=== PATIENT | female | born 1980 | race African-American/Black ===

== ENCOUNTER 2017-07-21 13:10 | Inpatient (IN) | payer MEDICARE, MEDICAID ==
[~2017-07-21] VITALS: Ht 165.1 cm; Wt 99.8 kg
[2017-07-21 13:20] VITALS: BP 152/79
[2017-07-21] MEDS ORDERED: PERCOCET 5-3251 EACH ORAL (13:26)
[2017-07-21] MEDS ORDERED: GABAPENTIN400 MG ORAL (13:26)
[2017-07-21] MEDS ORDERED: BUPROPION HCL100 M1 ORAL (13:26)
[2017-07-21] MEDS ORDERED: LANTUS SOL100 UNIT/1 SUBQ (13:26)
[2017-07-21] MEDS ORDERED: PLAVIX75 MG ORAL (13:26)
[2017-07-21] MEDS ORDERED: DERMOPLAST SPRA56 GM TP (13:26)
[2017-07-21] MEDS ORDERED: AMLODIPINE BESY10 MG ORAL (13:26)
[2017-07-21] MEDS ORDERED: ZYRTEC10 MG ORAL (13:26)
[2017-07-21] MEDS ORDERED: FLUTICASONE PRO16 G1 NASAL (13:26)
[2017-07-21] MEDS ORDERED: ASPIR 8181 MG ORAL (13:26)
[2017-07-21] MEDS ORDERED: ALBUTEROL SULF8.5 GM INH (13:26)
[2017-07-21] MEDS ORDERED: BENAZEPRIL HCL40 MG ORAL (13:26)
[2017-07-21] MEDS ORDERED: COLACE100 MG ORAL (13:26)
[2017-07-21] MEDS ORDERED: HUMALOG100 UNIT/4 SUBQ (13:27)
[2017-07-21 13:50] LABS: EOSINOPHILS % (AUTO) 1.7 % (0.0-3.0); LYMPHOCYTES % (AUTO) 18.2 % (20.0-45.0); MEAN CORPUSCULAR HEMOGLOBIN 29.1 PG (27.0-31.0); MEAN CORPUSCULAR HGB CONC 34.1 G/DL (32.0-36.0); MEAN CORPUSCULAR VOLUME 85 FL (80-99); MEAN PLATELET VOLUME 9.3 FL (6.5-10.1); MONOCYTES % (AUTO) 7.1 % (1.0-10.0); PLATELET COUNT 178 K/UL (150-450); RED BLOOD COUNT 3.81 M/UL (4.20-5.40); WHITE BLOOD COUNT 8.7 K/UL (4.8-10.8)
[2017-07-21 13:59] LABS: MAGNESIUM 1.8 mg/dL (1.7-2.5)
[2017-07-21 14:04] LABS: ALBUMIN/GLOBULIN RATIO 1.2 (1.0-2.7); CALCIUM 8.7 mg/dL (8.6-10.2); CREATININE 1.9 mg/dL (0.5-0.9); GLOMERULAR FILTRATION RATE 36.2 mL/min (>60); POTASSIUM 4.5 mEQ/L (3.4-4.9); TOTAL PROTEIN 6.6 g/dL (6.6-8.7); TROPONIN I < 0.30 ng/mL (<=0.30)
[2017-07-21 14:15] LABS: CKMB 4.7 ng/mL (< 3.8)
--- NOTE | 2017-07-21 14:34 | Emergency Room Report ---
History of Present Illness General Chief Complaint: Chest Pain Source: Patient Present Illness HPI 37-year-old female presents ED complaining of chest pain. Per EMS patient had chest pain starting today. Patient is been using cocaine for the last 3 days. Chest pain was pressure-like, 8/10, nonradiating. Was given aspirin and nitroglycerin per states the chest pain has resolved. Patient has history of hypertension diabetes. Accu-Chek is critically high. No other aggravating relieving factors. Denies any other associated symptom Allergies: Coded Allergies: CODEINE (Verified Allergy, Mild, 01/25/10) Patient History Past Medical History: DM, HTN Past Surgical History: none Pertinent Family History: none Social History: Reports: drug use, Denies: smoking, alcohol use Last Menstrual Period: 2011 (Depo) Now: No Immunizations: UTD Reviewed Nursing Documentation: PMH: Agreed, PSxH: Agreed Nursing Documentation-PMH Hx Diabetes: Yes History Of Psychiatric Problem: Yes - Cocaine abuse Review of Systems All Other Systems: negative except mentioned in HPI Physical Exam Vital Signs Date Time Temp Pulse Resp B/P (MAP) Pulse Ox O2 Delivery O2 Flow Rate FiO2 07/21/17 13:07 98.6 97 24 159/82 100 Room Air Sp02 EP Interpretation: reviewed, normal General Appearance: no apparent distress, alert, GCS 15, non-toxic Head: normocephalic, atraumatic Eyes: bilateral eye normal inspection, bilateral eye PERRL ENT: hearing grossly normal, normal pharynx, no angioedema, normal voice Neck: full range of motion, supple/symm/no masses Respiratory: chest non-tender, lungs clear, normal breath sounds, speaking full sentences Cardiovascular #1: regular rate, rhythm, no edema Cardiovascular #2: 2+ carotid (R), 2+ carotid (L), 2+ radial (R), 2+ radial (L) , 2+ dorsalis pedis (R), 2+ dorsalis pedis (L) Gastrointestinal: normal bowel sounds, non tender, soft, non-distended, no guarding, no rebound Rectal: deferred Genitourinary: normal inspection, no CVA tenderness Musculoskeletal: back normal, gait/station normal, normal range of motion, non- tender Neurologic: alert, oriented x3, responsive, motor strength/tone normal, sensory intact, speech normal Psychiatric: judgement/insight normal, memory normal, mood/affect normal, no suicidal/homicidal ideation Reflexes: 3+ bicep (R), 3+ bicep (L), 3+ tricep (R), 3+ tricep (L), 3+ knee (R) , 3+ knee (L) Skin: normal color, no rash, warm/dry, well hydrated Lymphatic: no adenopathy Procedures Critical Care Time Critical Care Time i. I feel this is a highly complex case requiring extensive working including EKG/Rhythm strip, Xray/CT/US, Blood/urine lab work, repeat exams while in ED, and administration of strong opiates/narcotics for pain control, admission to hospital or close patient follow up. Total time: 30 min bedside evaluation and treatment excludes procedures (EKG). Reason for critical care: Cocaine chest pain, hyperglycemia Possible complications: hypotension, hypertension, AZ, shock, arrhythmias, metabolic acidosis, end organ damage, respiratory failure. Interventions: Labs, IV fluids, EKG, chest x-ray. Insulin. Course: Patient brought in for chest pain. History of cocaine abuse. EKG shows no acute ischemic changes. Chest x-ray shows cardiac megaly, sternotomy wires. Troponins negative. Glucose 844, no evidence of DKA. Given IV fluids, given insulin. Patient given aspirin by EMS. Consultations: nursing staff, EMS, family Performed by: Dr Jeffers Tolerated well condition = serious j. because of unstable vital signs this patient had a condition that could potentially threaten life or limb. I feel this is a critical patient who required my full attention while patient was considered critical. Total Critical Care Time excluding procedures was greater than 35 minutes Medical Decision Making Diagnostic Impression: Primary Impression: ACS (acute coronary syndrome) Additional Impressions: Cocaine abuse Hyperglycemia ARF (acute renal failure) Qualified Codes: N17.9 - Acute kidney failure, unspecified ER Course Hospital Course 37-year-old female presents to ED with chest pain after using cocaine. Accu- Chek critically high Differential diagnoses include: AZ/unstable angina, hyperkalemia, msucle strain , DKA Clinical course Patient placed on stretcher. on patient monitor. After initial history and physical I ordered labs, EKG, chest x-ray, IVFs labs reviewed- no leukocytosis, hb/hct stable, BUN/Cr elevated, Na 128, trop negative, glucose > 800, no evidence of DKA. Utox + cocaine EKG - NSR, no acute changes interpreted by me Chest x-ray- no acute changes, sternotomy wires noted Given IV fluids. Given insulin. Patient is chest pain-free here Case discussed with Dr. Ochoa and he agreed to accept the patient to his service for further care and support I. I feel this is a highly complex case requiring extensive working including EKG/Rhythm strip, Xray/CT/US, Blood/urine lab work, repeat exams while in ED, and administration of strong opiates/narcotics for pain control, admission to hospital or close patient follow up. Diagnosis - ACS, cocaine abuse, hyperglycemia, ARF admitted to telemetry in serious condition Labs Test 07/21/17 13:28 White Blood Count 8.7 K/UL (4.8-10.8) Red Blood Count 3.81 M/UL (4.20-5.40) Hemoglobin 11.1 G/DL (12.0-16.0) Hematocrit 32.5 % (37.0-47.0) Mean Corpuscular Volume 85 FL (80-99) Mean Corpuscular Hemoglobin 29.1 PG (27.0-31.0) Mean Corpuscular Hemoglobin Concent 34.1 G/DL (32.0-36.0) Red Cell Distribution Width 12.0 % (11.6-14.8) Platelet Count 178 K/UL (150-450) Mean Platelet Volume 9.3 FL (6.5-10.1) Neutrophils (%) (Auto) 72.0 % (45.0-75.0) Lymphocytes (%) (Auto) 18.2 % (20.0-45.0) Monocytes (%) (Auto) 7.1 % (1.0-10.0) Eosinophils (%) (Auto) 1.7 % (0.0-3.0) Basophils (%) (Auto) 1.0 % (0.0-2.0) Urine HCG, Qualitative Negative Sodium Level 128 mEQ/L (135-145) Potassium Level 4.5 mEQ/L (3.4-4.9) Chloride Level 93 mEQ/L (98-107) Carbon Dioxide Level 17 mEQ/L (20-30) Anion Gap 18 (5-15) Blood Urea Nitrogen 25 mg/dL (7-23) Creatinine 1.9 mg/dL (0.5-0.9) Estimat Glomerular Filtration Rate 36.2 mL/min (>60) Glucose Level 844 mg/dL (74-106) Calcium Level 8.7 mg/dL (8.6-10.2) Magnesium Level 1.8 mg/dL (1.7-2.5) Total Bilirubin 0.3 mg/dL (0.0-1.2) Aspartate Amino Transf (AST/SGOT) 13 U/L (5-40) Alanine Aminotransferase (ALT/SGPT) 17 U/L (3-33) Alkaline Phosphatase 130 U/L (35-104) Total Creatine Kinase 373 U/L (26-140) Creatine Kinase MB 4.7 ng/mL (< 3.8) Creatine Kinase MB Relative Index 1.2 Troponin I < 0.30 ng/mL (<=0.30) Pro-B-Type Natriuretic Peptide 146 pg/mL (0-125) Total Protein 6.6 g/dL (6.6-8.7) Albumin 3.7 g/dL (3.5-5.2) Globulin 2.9 g/dL Albumin/Globulin Ratio 1.2 (1.0-2.7) Urine Opiates Screen Negative (NEGATIVE) Urine Barbiturates Screen Negative (NEGATIVE) Phencyclidine (PCP) Screen Negative (NEGATIVE) Urine Amphetamines Screen Negative (NEGATIVE) Urine Benzodiazepines Screen Negative (NEGATIVE) Urine Cocaine Screen Positive (NEGATIVE) Urine Marijuana (THC) Screen Negative (NEGATIVE) Acetone Level Negative (NEGATIVE) EKG Diagnostic Results Rate: normal Rhythm: NSR ST Segments: no acute changes ASA given to the pt in ED: No - given by ems Rhythm Strip Diag. Results EP Interpretation: yes Rhythm: NSR, no PVC's, no ectopy Chest X-Ray Diagnostic Results Chest X-Ray Diagnostic Results : Chest X-Ray Ordered: Yes # of Views/Limited/Complete: 1 View Indication: Chest Pain EP Interpretation: Yes Interpretation: no consolidation, no effusion, no pneumothorax, no acute cardiopulmonary disease, other - sternotomy wires noted Impression: No acute disease Interpreting ER Provider: Electronically signed by Imtiaz Jeffers MD Last Vital Signs Date Time Temp Pulse Resp B/P (MAP) Pulse Ox O2 Delivery O2 Flow Rate FiO2 07/21/17 13:20 93 23 Room Air 07/21/17 13:20 98.0 152/79 100 Status: improved Disposition: ADMITTED INPATIENT Condition: Serious Referrals: NOT CHOSEN SHAHZAD/,REFERRING (PCP) IMTIAZ JEFFERS M.D. Jul 21, 2017 14:34
[2017-07-21 15:00] VITALS: BP 162/85
[2017-07-21 15:56] LABS: O2 CONTENT VENOUS 41.6
[2017-07-21 17:00] VITALS: BP 151/85
--- NOTE | 2017-07-21 18:05 | History & Physical ---
History and Physical History & Physicial 37-year-old female presents with vague chest pain and noted to have poorly controlled diabetes. Per the patient, chest pain started today and was severe but not radiating. Patient is been using cocaine for the last 3 days. she was given aspirin and nitroglycerin with resolution of chest pain. Patient does have a history of hypertension diabetes. She was treated in the ER and now being admitted [facility]. she has no significant CAD but does have hypertension. Allergies/Medications: noted and reviewed CODEINE (Verified Allergy, Mild, 01/25/10) Past Medical History: DM, HTN Past Surgical History: none Pertinent Family History: none Social History: reports cocaine use, Denies: smoking, alcohol use Last Menstrual Period: 2011 (Depo) Reviewed of systems: otherwise negative Physical exam 157/79 98.4 75 14 98% WDWN NAD EOMI clear breath sounds bilaterally without rhonchi or wheeze [id number] without MRG NABS nontender no HSM no CCE nonfocal Labs Test 07/21/17 13:28 07/21/17 15:50 White Blood Count 8.7 K/UL (4.8-10.8) Red Blood Count 3.81 M/UL (4.20-5.40) Hemoglobin 11.1 G/DL (12.0-16.0) Hematocrit 32.5 % (37.0-47.0) Mean Corpuscular Volume 85 FL (80-99) Mean Corpuscular Hemoglobin 29.1 PG (27.0-31.0) Mean Corpuscular Hemoglobin Concent 34.1 G/DL (32.0-36.0) Red Cell Distribution Width 12.0 % (11.6-14.8) Platelet Count 178 K/UL (150-450) Mean Platelet Volume 9.3 FL (6.5-10.1) Neutrophils (%) (Auto) 72.0 % (45.0-75.0) Lymphocytes (%) (Auto) 18.2 % (20.0-45.0) Monocytes (%) (Auto) 7.1 % (1.0-10.0) Eosinophils (%) (Auto) 1.7 % (0.0-3.0) Basophils (%) (Auto) 1.0 % (0.0-2.0) Urine HCG, Qualitative Negative Sodium Level 128 mEQ/L (135-145) Potassium Level 4.5 mEQ/L (3.4-4.9) Chloride Level 93 mEQ/L (98-107) Carbon Dioxide Level 17 mEQ/L (20-30) Anion Gap 18 (5-15) Blood Urea Nitrogen 25 mg/dL (7-23) Creatinine 1.9 mg/dL (0.5-0.9) Estimat Glomerular Filtration Rate 36.2 mL/min (>60) Glucose Level 844 mg/dL (74-106) Calcium Level 8.7 mg/dL (8.6-10.2) Magnesium Level 1.8 mg/dL (1.7-2.5) Total Bilirubin 0.3 mg/dL (0.0-1.2) Aspartate Amino Transf (AST/SGOT) 13 U/L (5-40) Alanine Aminotransferase (ALT/SGPT) 17 U/L (3-33) Alkaline Phosphatase 130 U/L (35-104) Total Creatine Kinase 373 U/L (26-140) Creatine Kinase MB 4.7 ng/mL (< 3.8) Creatine Kinase MB Relative Index 1.2 Troponin I < 0.30 ng/mL (<=0.30) Pro-B-Type Natriuretic Peptide 146 pg/mL (0-125) Total Protein 6.6 g/dL (6.6-8.7) Albumin 3.7 g/dL (3.5-5.2) Globulin 2.9 g/dL Albumin/Globulin Ratio 1.2 (1.0-2.7) Urine Opiates Screen Negative (NEGATIVE) Urine Barbiturates Screen Negative (NEGATIVE) Phencyclidine (PCP) Screen Negative (NEGATIVE) Urine Amphetamines Screen Negative (NEGATIVE) Urine Benzodiazepines Screen Negative (NEGATIVE) Urine Cocaine Screen Positive (NEGATIVE) Urine Marijuana (THC) Screen Negative (NEGATIVE) Acetone Level Negative (NEGATIVE) Venous Bld O2 Saturation (Measured) 41.6 Methemoglobin 0.4 IMPRESSION diabetes out of control no clear DKA by acetone level metabolic acidosis acute renal failure hyponatremia hypertension chest pain possible ACS cocaine use PLAN serial troponin ECG iv hydration SSI with high scale monitor lytes and K aspirin daily beta blockers impression, plan, and exam edited and reviewed in detail care discussed with BHAVIN HENRIQUEZ Jul 21, 2017 18:05
[2017-07-21] MEDS ORDERED: LORazepam 1mg tab ORAL PRN (18:15)
[2017-07-21] MEDS ORDERED: oxyCODONE HCL/Acetaminophen 5/325mg ORAL PRN (18:15)
[2017-07-21] MEDS ORDERED: DuoNeb 0.5-3(2.5)mg/3ml neb ONE (19:53)
[2017-07-21 20:00] VITALS: BP 151/80
[2017-07-21] MEDS: NovoLOG Insulin Flexpen SUBQ SCH (20:21)
[2017-07-21] MEDS: Albuterol ud Inhalation HHN SCH ×2 (21:00→23:15)
[2017-07-21] MEDS ORDERED: Zolpidem 5mg tab ORAL PRN (21:00)
[2017-07-21] MEDS: Flonase Nasal Inhaler 16gm NASAL SCH (21:17)
[2017-07-21] MEDS: BuPROPion XL 150mg tab ORAL SCH (21:17)
[2017-07-21 21:29] LABS: HEMOGLOBIN A1C 9.5 % (< 6.0)
[2017-07-21 21:38] LABS: CALCIUM 8.5 mg/dL (8.6-10.2); CREATININE 1.6 mg/dL (0.5-0.9); GLOMERULAR FILTRATION RATE 44.2 mL/min (>60); POTASSIUM 4.2 mEQ/L (3.4-4.9)
[2017-07-22] MEDS ORDERED: Zolpidem 5mg tab ORAL PRN (02:15)
[2017-07-22] MEDS: Albuterol ud Inhalation HHN SCH ×6 (04:51→23:34)
[2017-07-22] MEDS: NovoLOG Insulin Flexpen SUBQ SCH ×4 (05:37→21:25)
[2017-07-22] MEDS ORDERED: Nitroglycerin 2% oint pkt TOPIC SCH (06:00)
[2017-07-22 07:08] LABS: BASOPHILS % (AUTO) 1.1 % (0.0-2.0); EOSINOPHILS % (AUTO) 3.4 % (0.0-3.0); LYMPHOCYTES % (AUTO) 30.3 % (20.0-45.0); MEAN CORPUSCULAR HEMOGLOBIN 28.7 PG (27.0-31.0); MEAN CORPUSCULAR HGB CONC 33.8 G/DL (32.0-36.0); MEAN CORPUSCULAR VOLUME 85 FL (80-99); MEAN PLATELET VOLUME 10.6 FL (6.5-10.1); MONOCYTES % (AUTO) 6.7 % (1.0-10.0); NEUTROPHILS % (AUTO) 58.6 % (45.0-75.0); PLATELET COUNT 172 K/UL (150-450); RED BLOOD COUNT 3.94 M/UL (4.20-5.40); WHITE BLOOD COUNT 6.8 K/UL (4.8-10.8)
[2017-07-22] MEDS: Docusate 100mg cap ORAL SCH ×2 (08:19→17:32)
[2017-07-22] MEDS: Flonase Nasal Inhaler 16gm NASAL SCH ×2 (08:19→17:32)
[2017-07-22] MEDS: Aspirin EC 81mg tab ORAL SCH (08:20)
[2017-07-22] MEDS: BuPROPion XL 150mg tab ORAL SCH ×2 (08:21→21:22)
[2017-07-22] MEDS ORDERED: Atenolol 25mg tab ORAL SCH (09:00)
[2017-07-22] MEDS ORDERED: Heparin 5000 units/ml inj SUBQ SCH (09:00)
[2017-07-22] MEDS ORDERED: Aspirin Baby 81mg ORAL SCH (09:00)
--- NOTE | 2017-07-22 09:23 | Diagnostic Imaging Report ---
Indication: Chest pain Technique: One view of the chest Comparison: 04/10/2012 Findings: The lungs and pleural spaces are clear. The heart is mildly enlarged. Interim median sternotomy. No other significant change Impression: No acute process Mild cardiomegaly
[2017-07-22 12:00] VITALS: BP 153/87
--- NOTE | 2017-07-22 12:06 | General Progress Note ---
Assessment/Plan Assessment/Plan IMPRESSION diabetes out of control no clear DKA by acetone level metabolic acidosis acute renal failure hyponatremia hypertension chest pain possible ACS cocaine use PLAN serial troponin ECG noted iv hydration SSI with high scale monitor lytes and K aspirin daily dc in am if stable impression, plan, and exam edited and reviewed in detail care discussed with RN Subjective Allergies: Coded Allergies: CODEINE (Verified Allergy, Mild, 01/25/10) Subjective overall better no cp Objective Last 24 Hour Vital Signs Date Time Temp Pulse Resp B/P (MAP) Pulse Ox O2 Delivery O2 Flow Rate FiO2 07/22/17 11:58 92 17 98 Room Air 07/22/17 08:20 89 149/86 07/22/17 08:00 83 07/22/17 07:29 88 18 97 Room Air 07/22/17 07:22 88 16 97 Room Air 07/22/17 04:52 80 20 Room Air 21 07/22/17 04:00 89 07/22/17 03:40 88 20 100 Room Air 07/22/17 03:30 80 20 98 Room Air 07/22/17 01:05 97.3 07/22/17 00:00 91 07/21/17 23:18 86 20 100 Room Air 21 07/21/17 23:17 82 20 100 Room Air 21 07/21/17 20:00 91 07/21/17 20:00 97.3 95 22 151/80 94 Room Air 07/21/17 17:47 95 22 157/79 100 Room Air 07/21/17 17:00 93 24 151/85 98 Room Air 07/21/17 15:00 98.3 97 30 162/85 98 Room Air 07/21/17 13:20 93 23 Room Air 07/21/17 13:20 98.0 94 25 152/79 100 Room Air 07/21/17 13:07 98.6 97 24 159/82 100 Room Air Intake and Output 07/22/17 07/23/17 19:00 07:00 Intake Total 150 ml Balance 150 ml Intake IV Total 150 ml Laboratory Tests 07/21/17 13:28: White Blood Count 8.7, Red Blood Count 3.81L, Hemoglobin 11.1L, Hematocrit 32.5L , Mean Corpuscular Volume 85, Mean Corpuscular Hemoglobin 29.1, Mean Corpuscular Hemoglobin Concent 34.1, Red Cell Distribution Width 12.0, Platelet Count 178, Mean Platelet Volume 9.3, Neutrophils (%) (Auto) 72.0, Lymphocytes (% ) (Auto) 18.2L, Monocytes (%) (Auto) 7.1, Eosinophils (%) (Auto) 1.7, Basophils (%) (Auto) 1.0, Urine HCG, Qualitative Negative, Sodium Level 128L, Potassium Level 4.5, Chloride Level 93L, Carbon Dioxide Level 17L, Anion Gap 18H, Blood Urea Nitrogen 25H, Creatinine 1.9H, Estimat Glomerular Filtration Rate 36.2, Glucose Level 844*H, Calcium Level 8.7, Magnesium Level 1.8, Total Bilirubin 0.3 , Aspartate Amino Transf (AST/SGOT) 13, Alanine Aminotransferase (ALT/SGPT) 17, Alkaline Phosphatase 130H, Total Creatine Kinase 373H, Creatine Kinase MB 4.7H, Creatine Kinase MB Relative Index 1.2, Troponin I < 0.30, Pro-B-Type Natriuretic Peptide 146H, Total Protein 6.6, Albumin 3.7, Globulin 2.9, Albumin/ Globulin Ratio 1.2, Urine Opiates Screen Negative, Urine Barbiturates Screen Negative, Phencyclidine (PCP) Screen Negative, Urine Amphetamines Screen Negative, Urine Benzodiazepines Screen Negative, Urine Cocaine Screen PositiveH , Urine Marijuana (THC) Screen Negative, Acetone Level Negative 07/21/17 15:50: Venous Blood pH [Pending], Venous Blood Partial Pressure CO2 [Pending], Venous Blood Partial Pressure O2 [Pending], Venous Blood HCO3 [Pending], Venous Blood Total Carbon Dioxide [Pending], Venous Bld O2 Saturation (Measured) 41.6, Venous Blood Oxygen Saturation [Pending], Venous Blood Base Excess [Pending], Methemoglobin 0.4, Sodium (Blood Gas) [Pending] 07/21/17 20:12: Sodium Level 138#, Potassium Level 4.2, Chloride Level 103, Carbon Dioxide Level 19L, Anion Gap 16H, Blood Urea Nitrogen 25H, Creatinine 1.6H, Estimat Glomerular Filtration Rate 44.2, Glucose Level 419#H, Calcium Level 8.5L, Hemoglobin A1c 9.5H 07/22/17 05:20: White Blood Count 6.8, Red Blood Count 3.94L, Hemoglobin 11.3L, Hematocrit 33.5L , Mean Corpuscular Volume 85, Mean Corpuscular Hemoglobin 28.7, Mean Corpuscular Hemoglobin Concent 33.8, Red Cell Distribution Width 12.0, Platelet Count 172, Mean Platelet Volume 10.6H, Neutrophils (%) (Auto) 58.6, Lymphocytes (%) (Auto) 30.3, Monocytes (%) (Auto) 6.7, Eosinophils (%) (Auto) 3.4H, Basophils (%) (Auto) 1.1 Height (Feet): 5 Height (Inches): 5.00 Weight (Pounds): 220 Objective WDWN NAD clear breath sounds bilaterally without rhonchi or wheeze [id number] without MRG NABS nontender no HSM no CCE nonfocal BHAVIN PERRY Jul 22, 2017 12:06
[2017-07-22 16:00] VITALS: BP 134/74
[2017-07-22 20:00] VITALS: BP 128/83
[2017-07-22] MEDS ORDERED: Levemir Flexpen SUBQ SCH (21:00)
[2017-07-23 00:22] VITALS: BP 154/77
[2017-07-23] MEDS: Albuterol ud Inhalation HHN SCH ×3 (03:21→11:00)
[2017-07-23 03:55] VITALS: BP 143/76
[2017-07-23] MEDS: NovoLOG Insulin Flexpen SUBQ SCH ×2 (05:58→11:36)
[2017-07-23 07:59] VITALS: BP 136/83
[2017-07-23] MEDS: Docusate 100mg cap ORAL SCH (08:37)
[2017-07-23] MEDS: Flonase Nasal Inhaler 16gm NASAL SCH (08:37)
[2017-07-23] MEDS: Aspirin EC 81mg tab ORAL SCH (08:38)
[2017-07-23] MEDS: BuPROPion XL 150mg tab ORAL SCH (08:38)
--- NOTE | 2017-07-23 09:59 | General Progress Note ---
Assessment/Plan Assessment/Plan IMPRESSION diabetes out of control no clear DKA by acetone level metabolic acidosis acute renal failure hyponatremia hypertension chest pain possible ACS cocaine use PLAN serial troponin negative ECG noted iv hydration- likely dc SSI with high scale monitor lytes and K aspirin daily dc to snf if able patient will need placement impression, plan, and exam edited and reviewed in detail care discussed with RN Subjective Allergies: Coded Allergies: CODEINE (Verified Allergy, Mild, 01/25/10) Subjective overall better no cp at present reports she has no home at present and unable to fill meds Objective Last 24 Hour Vital Signs Date Time Temp Pulse Resp B/P (MAP) Pulse Ox O2 Delivery O2 Flow Rate FiO2 07/23/17 08:38 136/83 07/23/17 08:37 86 136/83 07/23/17 08:00 91 07/23/17 07:59 97.7 86 18 136/83 100 Room Air 07/23/17 07:31 95 20 100 Room Air 07/23/17 07:23 92 20 100 Room Air 07/23/17 04:31 99 07/23/17 03:55 97.7 85 22 143/76 99 Room Air 07/23/17 03:30 89 20 98 Room Air 07/23/17 03:19 92 22 95 Room Air 07/23/17 00:22 98.1 92 21 154/77 100 Room Air 07/23/17 00:00 92 07/22/17 23:46 90 14 96 Room Air 07/22/17 23:32 90 18 93 Room Air 07/22/17 20:02 97 07/22/17 20:00 98.1 91 21 128/83 98 Room Air 07/22/17 19:53 92 16 97 Room Air 07/22/17 19:42 91 16 94 Room Air 07/22/17 16:00 97.8 87 20 134/74 99 Room Air 07/22/17 16:00 90 07/22/17 15:30 Room Air 07/22/17 15:30 Room Air 07/22/17 12:12 149/86 07/22/17 12:11 86 19 98 Room Air 07/22/17 12:00 86 07/22/17 12:00 97.7 91 20 153/87 97 Room Air 07/22/17 11:58 92 17 98 Room Air Intake and Output 07/23/17 07/24/17 19:00 07:00 Intake Total 520 ml Balance 520 ml Intake Oral 240 ml IV Total 280 ml Height (Feet): 5 Height (Inches): 5.00 Weight (Pounds): 220 Objective WDWN NAD clear breath sounds bilaterally without rhonchi or wheeze [id number] without MRG NABS nontender no HSM no CCE nonfocal BHAVIN PERRY Jul 23, 2017 09:59
[2017-07-23 11:33] VITALS: BP 153/89
[2017-07-23] MEDS ORDERED: LORazepam 1mg tab ORAL PRN (12:30)
[2017-07-23] MEDS ORDERED: oxyCODONE HCL/Acetaminophen 5/325mg ORAL PRN (12:30)
[2017-07-23] MEDS ORDERED: Albuterol ud Inhalation HHN SCH (15:00)
[2017-07-23] MEDS ORDERED: NovoLOG Insulin Flexpen SUBQ SCH (16:30)
[2017-07-23] MEDS ORDERED: Docusate 100mg cap ORAL SCH (18:00)
[2017-07-23] MEDS ORDERED: Flonase Nasal Inhaler 16gm NASAL SCH (18:00)
[2017-07-23] MEDS ORDERED: Zolpidem 5mg tab ORAL PRN (21:00)
[2017-07-23] MEDS ORDERED: BuPROPion SR 150mg tab ORAL SCH (21:00)
[2017-07-23] MEDS ORDERED: Levemir Flexpen SUBQ SCH (21:00)
--- NOTE | 2017-07-24 05:45 | Progress Note ---
July 23, 2017 CARDIOLOGY PROGRESS NOTE SUBJECTIVE: The patient is not cooperative with blood draws and wants to leave the hospital. PHYSICAL EXAMINATION: VITAL SIGNS: Blood pressure 143/76, pulse 85, and respiratory rate 22. No fevers. LUNGS: Clear. CARDIAC: Regular. Normal S1, S2. ABDOMEN: Soft. No edema. IMPRESSION: 1. Cocaine intoxication. 2. Coronary vasospasm secondary to cocaine. 3. Acute coronary insufficiency. 4. Diabetes mellitus uncontrolled with possible ketoacidosis. 5. Hypertensive heart disease. PLAN: 1. Encouraged laboratory draw. 2. Hydration by IV route. 3. Insulin coverage. 4. Anti-platelet therapy. 5. As needed nitrates. 6. No stress test planned at this time. Mark Yarbrough M.D. DR: NINO JOB#: [id number] CC: LAVERN
--- NOTE | 2017-07-24 07:16 | Consultation ---
DATE OF CONSULTATION: 07/22/2017 CARDIOLOGY CONSULTATION CONSULTING PHYSICIAN: Mark Yarbrough M.D. REQUESTING PHYSICIAN: Jung Ochoa M.D. REASON FOR CONSULTATION: Chest pain. HISTORY OF PRESENT ILLNESS: This is a 37-year-old female. She presented to the hospital yesterday with complaints of chest pain of one day duration and was also noted to have uncontrolled diabetes with possible ketosis. The patient had admitted to cocaine use and a positive tox screen was noted. The patient has no other coronary risk factors. Her troponin levels have been negative. PAST MEDICAL HISTORY: Diabetes mellitus and hypertension. MEDICATIONS: Reviewed and reconciled. SOCIAL HISTORY: Positive cocaine use. Denies smoking or alcohol use. FAMILY HISTORY: Noncontributory. REVIEW OF SYSTEMS: A 10-point review of systems performed. All systems negative other than noted above. PHYSICAL EXAMINATION: VITAL SIGNS: Blood pressure 128/83, pulse 91, respirations 21, and afebrile. NECK: Supple. Jugular venous pressure normal. No bruits. LUNGS: Clear. CARDIAC: Regular rhythm and rate. Normal S1 and S2 with no murmur, rub, or gallop. ABDOMEN: Soft. EXTREMITIES: Without edema. LABORATORY DATA: Troponin negative on admission. Laboratories reviewed. IMPRESSION: 1. Cocaine intoxication and abuse. 2. Probable coronary vasospasm secondary to cocaine. 3. Acute on chronic kidney injury. 4. Diabetes mellitus, uncontrolled with possible ketoacidosis. PLAN: 1. Hydration. 2. Insulin coverage. 3. Nitrates. 4. Anti-platelet therapy. 5. I would not recommend stress test at this time. Mark Yarbrough M.D. DR: NOMAN JOB#: [id number] CC:
[2017-07-24] MEDS ORDERED: Aspirin EC 81mg tab ORAL SCH (09:00)
--- NOTE | 2017-07-24 16:49 | Cardiology Report ---
APPROVED REPORT EKG Measurement Heart [id number] Normal sinus rhythm Possible Left atrial enlargement Possible Inferior infarct, age undetermined Anterior infarct, age undetermined Prolonged QT Abnormal ECG
--- NOTE | 2017-07-25 13:56 | Discharge Summary ---
Discharge Summary Hospital Course Date of Admission Jul 21, 2017 at 14:05 Date of Discharge Jul 23, 2017 at 13:15 Admitting Diagnosis Acute Coronary Syndrome, Substance Abuse HPI Stefanie Hogue is a 37 year old female who was admitted on Jul 21, 2017 at 14: 05 for Acute Coronary Syndrome,Substance Abuse Hospital Course [id number] Discharge Discharge Disposition Patient left AMA Discharge Diagnoses: Bianka Ortiz NP Jul 25, 2017 13:56
--- NOTE | 2017-07-26 05:45 | Discharge Summary 2 SIG ---
DATE OF ADMISSION: 07/21/2017 DATE OF DISCHARGE: 07/23/2017 CONDITIONING MACHINE OPERATOR: Mark Yarbrough M.D. BRIEF HOSPITAL COURSE: The patient is a 37-year-old female, who came in complaining of vague chest pain and was noted to have poorly controlled diabetes. Chest pain started the day on admission and was described to be severe, but nonradiating. She admits to using cocaine for the past three days. She was given aspirin and nitroglycerin. Chest pain resolved. She has history of hypertension and diabetes and glucose was 844. Creatinine was elevated to 1.9. Sodium was 128. There was no evidence of DKA. Urine toxicology was positive for cocaine. Acetone level was negative. Anion gap was 18. She was admitted to telemetry for diabetes mellitus, out of control, metabolic acidosis, acute renal failure, hyponatremia, and hypertension with chest pain. Cardiac troponins were monitored. She was given IV hydration. Blood sugar was controlled with sliding scale of insulin. She underwent cardiac evaluation and was given antiplatelet therapy consisting of aspirin and Plavix. She was given benazepril and Norvasc. No need for stress test. She was eventually discharged home. FINAL DIAGNOSES: 1. Diabetes mellitus, out of control. 2. Metabolic acidosis. 3. Acute renal failure. 4. Hyponatremia. 5. Hypertension. 6. Probable coronary vasospasm, secondary to cocaine. 7. Diabetes mellitus with possible ketoacidosis. 8. Cocaine intoxication and abuse. DISPOSITION: The patient left against medical advice. Jung Ochoa M.D. I have been assigned to dictate discharge summary on this account and I was not involved in the patient's management. Bianka Ortiz N.P. DR: Ignacia JOB#: [id number] CC:
== END 2017-07-23 13:15 | disposition left against medical advice (07) | DRG 638 ==
LOC: EDBD 13:10 → EMR 14:01 → 2E 14:05 → EDBEDREQ 14:14 → 2E 22:23
DX: E13.10 Other specified diabetes mellitus with ketoacidosis without coma (principal); I20.1 Angina pectoris with documented spasm; N17.9 Acute kidney failure, unspecified; I13.10 Hypertensive heart and chronic kidney disease without heart failure, with stage 1 through stage 4 chronic kidney disease, or unspecified chronic kidney disease; E87.1 Hypo-osmolality and hyponatremia; Z79.4 Long term (current) use of insulin; F14.129 Cocaine abuse with intoxication, unspecified; E11.22 Type 2 diabetes mellitus with diabetic chronic kidney disease; N18.9 Chronic kidney disease, unspecified; Z88.6 Allergy status to analgesic agent
CPT/HCPCS: 36415; 71010; 80048; 80053; 80300; 81025; 82009; 82550; 82553; 82962; 83036; 83735; 83880; 84484; 85025; 87081; 93005; 93306; 94640; 94664; J1815; J7620; S5561

== ENCOUNTER 2017-07-26 23:34 | Emergency (ER) | payer MEDICARE, MEDICAID ==
[~2017-07-26] VITALS: Ht 162.6 cm; Wt 99.8 kg
[~2017-07-26 23:34] MED LIST: ALBUTEROL SULF8.5 GM INH; AMLODIPINE BESY10 MG ORAL; ASPIR 8181 MG ORAL; BENAZEPRIL HCL40 MG ORAL; BUPROPION HCL100 M1 ORAL; COLACE100 MG ORAL; DERMOPLAST SPRA56 GM TP; FLUTICASONE PRO16 G1 NASAL; GABAPENTIN400 MG ORAL; HUMALOG100 UNIT/4 SUBQ; LANTUS SOL100 UNIT/1 SUBQ; PERCOCET 5-3251 EACH ORAL; PLAVIX75 MG ORAL; ZYRTEC10 MG ORAL
[2017-07-26 23:55] VITALS: BP 166/95
--- NOTE | 2017-07-27 00:08 | Emergency Room Report ---
History of Present Illness General Chief Complaint: Headache Source: Patient Present Illness HPI She'll female with a history of diabetes and high blood pressure. She presents with chief complaint of headache. She said that she is out of her pain medication. Also hasn't taken her blood pressure medication or her diabetes medication since she left here 2 days ago. She has a history of cocaine abuse. She told me she hasn't used anything since she was admitted here. Also said she hasn't taken her medication because she is homeless and does have any money. She said that she was discharged. There was talk about sent her to snf for her medication. When I checked the notes from director of social services and nursing staff, patient signed out AMA. She was very restrictive away she wants to go. She did not want director of social services to call her family. She does notice that her money on [facility]. She only wanted go to a certain 1 that she can stay all day. She did not want to use her money on her medications been no co-pays only $1-$3 prescription. Allergies: Coded Allergies: CODEINE (Verified Allergy, Mild, 01/25/10) Patient History Past Medical History: see triage record, old chart reviewed, DM, HTN, CAD Past Surgical History: other Pertinent Family History: none Social History: Reports: smoking, drug use Last Menstrual Period: January 2012 Now: No Immunizations: other Reviewed Nursing Documentation: PMH: Agreed, PSxH: Agreed Nursing Documentation-PMH Hx Hypertension: Yes Hx Diabetes: Yes Review of Systems Eye: Denies: eye pain, blurred vision ENT: Denies: ear pain, nose congestion, throat swelling Respiratory: Denies: cough, shortness of breath Cardiovascular: Denies: chest pain, palpitations Gastrointestinal: Denies: abdominal pain, diarrhea, nausea, vomiting Musculoskeletal: Denies: back pain, joint pain Skin: Denies: rash Neurological: Reports: headache, Denies: numbness Endocrine: Denies: increased thirst, increased urine Hematologic/Lymphatic: Denies: easy bruising All Other Systems: negative except mentioned in HPI Physical Exam Vital Signs Date Time Temp Pulse Resp B/P (MAP) Pulse Ox O2 Delivery O2 Flow Rate FiO2 07/26/17 23:50 98.2 92 16 166/95 100 Room Air vitals with htn Sp02 EP Interpretation: reviewed, normal General Appearance: well appearing, no apparent distress, alert Head: normocephalic, atraumatic Eyes: bilateral eye PERRL, bilateral eye EOMI ENT: hearing grossly normal, normal pharynx Neck: full range of motion, supple, no meningismus Respiratory: chest non-tender, lungs clear, normal breath sounds Cardiovascular #1: regular rate, rhythm, no murmur Gastrointestinal: normal bowel sounds, non tender, no mass, no organomegaly, no bruit, non-distended Musculoskeletal: back normal, gait/station normal, normal range of motion Psychiatric: mood/affect normal Skin: warm/dry Medical Decision Making Diagnostic Impression: Primary Impression: Headache Qualified Codes: R51 - Headache Additional Impressions: Hypertension Qualified Codes: I10 - Essential (primary) hypertension Hyperglycemia due to type 1 diabetes mellitus Cocaine abuse UTI (urinary tract infection) Qualified Codes: N30.00 - Acute cystitis without hematuria Noncompliance Obesity (BMI 30-39.9) Anemia Qualified Codes: D64.9 - Anemia, unspecified Proteinuria Qualified Codes: R80.9 - Proteinuria, unspecified ER Course Patient with headache. Most likely secondary to opioid withdrawal, drug withdrawal. No evidence of TIA or CVA. No evidence of bleed. She is hyperglycemic but not in DKA. She does have a urinary tract infection. I see no criteria for admission. I will keep the patient overnight until we can fill her prescription in the morning. She only want to go to certain places and this is unrealistic. We'll discharge in the morning. She does not want to go to a [facility]. Lab Results Impression labs with high glucose Last Vital Signs Date Time Temp Pulse Resp B/P (MAP) Pulse Ox O2 Delivery O2 Flow Rate FiO2 07/26/17 23:50 98.2 92 16 166/95 100 Room Air Status: improved Disposition: HOME, SELF-CARE Condition: Stable Scripts Metformin Hcl* (METFORMIN HCL*) 1,000 Mg Tablet 1000 MG ORAL BID, #60 TAB Prov: JEROMY CHO M.D. 07/27/17 Insulin Lispro (HUMALOG) 100 Unit/1 Ml Insuln.pen 10 UNITS SUBQ tid before meals, #1 EA 0 Refills Prov: JEROMY CHO M.D. 07/27/17 Insulin Glargine (LANTUS) 100 Unit/1 Ml Insuln.pen 40 UNITS SUBQ BEDTIME, #1 EA 0 Refills Prov: JEROMY CHO M.D. 07/27/17 Clopidogrel Bisulfate* (PLAVIX*) 75 Mg Tablet 75 MG ORAL DAILY, #30 TAB Prov: JEROMY CHO M.D. 07/27/17 Benazepril Hcl* (BENAZEPRIL HCL*) 40 Mg Tablet 40 MG ORAL DAILY, #30 TAB Prov: JEROMY CHO M.D. 07/27/17 Amlodipine Besylate (Norvasc) 10 Mg Tablet 10 MG ORAL DAILY, #30 TAB Prov: JEROMY CHO M.D. 07/27/17 Referrals: NOT CHOSEN IPA/,REFERRING (PCP) Additional Instructions: Stop using drugs. Followup with your Dr. in 2-3 days. Return if symptom worsen. JEROMY CHO M.D. Jul 27, 2017 00:08
[2017-07-27] MEDS ORDERED: Acetaminophen 500mg (ES) tab ORAL ONE (00:30)
[2017-07-27 01:04] LABS: BASOPHILS % (AUTO) 1.6 % (0.0-2.0); EOSINOPHILS % (AUTO) 1.9 % (0.0-3.0); LYMPHOCYTES % (AUTO) 22.7 % (20.0-45.0); MEAN CORPUSCULAR HEMOGLOBIN 30.2 PG (27.0-31.0); MEAN CORPUSCULAR HGB CONC 35.7 G/DL (32.0-36.0); MEAN CORPUSCULAR VOLUME 85 FL (80-99); MEAN PLATELET VOLUME 11.5 FL (6.5-10.1); MONOCYTES % (AUTO) 6.4 % (1.0-10.0); NEUTROPHILS % (AUTO) 67.4 % (45.0-75.0); PLATELET COUNT 204 K/UL (150-450); RED BLOOD COUNT 3.77 M/UL (4.20-5.40); WHITE BLOOD COUNT 10.9 K/UL (4.8-10.8)
[2017-07-27 01:17] LABS: CALCIUM 9.5 mg/dL (8.6-10.2); CREATININE 1.5 mg/dL (0.5-0.9); GLOMERULAR FILTRATION RATE 47.6 mL/min (>60); POTASSIUM 3.9 mEQ/L (3.4-4.9)
[2017-07-27 01:37] LABS: APPEARANCE,URINE SLIGHTLY CLOUDY; KETONES,URINE NEGATIVE (NEGATIVE); LEUKOCYTE ESTERASE ,URINE 3+ (NEGATIVE); NITRITE,URINE NEGATIVE (NEGATIVE); PH,URINE 5 (4.5-8.0); PROTEIN,URINE 4+ (NEGATIVE); UROBILINOGEN,URINE NORMAL MG/DL (0.0-1.0)
[2017-07-27 01:47] LABS: BACTERIA,URINE MODERATE /HPF; RBC,URINE 15-20 /HPF (0 - 2); SQUAMOUS EPITHELIAL CELL,UR MODERATE /LPF (NONE/OCC); WBC,URINE 40-60 /HPF (0 - 2)
[2017-07-27 02:00] VITALS: BP 173/103
[2017-07-27] MEDS ORDERED: metFORMIN 500mg tab ORAL ONE (02:15)
[2017-07-27] MEDS ORDERED: cefTRIAXone 1 GM in NS 55 ML IVPB ONE (02:15)
[2017-07-27] MEDS ORDERED: PLAVIX75 MG ORAL (02:27)
[2017-07-27] MEDS ORDERED: NORVASC10 MG ORAL (02:27)
[2017-07-27] MEDS ORDERED: LANTUS SOL100 UNIT/1 SUBQ (02:27)
[2017-07-27] MEDS ORDERED: METFORMIN HCL1000 M1 ORAL (02:27)
[2017-07-27] MEDS ORDERED: HUMALOG100 UNIT/3 SUBQ (02:27)
[2017-07-27] MEDS ORDERED: BENAZEPRIL HCL40 MG ORAL (02:27)
[2017-07-27 04:00] VITALS: BP 163/95
[2017-07-27 06:10] VITALS: BP 158/88
[2017-07-27 06:15] VITALS: BP 158/88
== END 2017-07-27 06:15 | disposition home or self-care (01) ==
LOC: EMR 23:50
DX: R51 Headache (principal); I10 Essential (primary) hypertension; E10.8 Type 1 diabetes mellitus with unspecified complications; F14.10 Cocaine abuse, uncomplicated; N39.0 Urinary tract infection, site not specified; Z91.14 Patient's other noncompliance with medication regimen; E66.9 Obesity, unspecified; Z68.37 Body mass index [BMI] 37.0-37.9, adult; D64.9 Anemia, unspecified; R80.9 Proteinuria, unspecified
CPT/HCPCS: 36415; 80048; 80300; 81001; 81025; 82962; 85025; 87086; 96374; 96375; 99284; J0360; J0696

== ENCOUNTER 2019-09-18 13:29 | Inpatient (IN) | payer MEDICARE, OTHER ==
[~2019-09-18] VITALS: Ht 162.6 cm; Wt 74.8 kg
[~2019-09-18 13:29] MED LIST changes: +HUMALOG100 UNIT/3 SUBQ; +METFORMIN HCL1000 M1 ORAL; +NORVASC10 MG ORAL
--- NOTE | 2019-09-18 13:38 | NUR ---
ED Nurse Note: Patient came in by ambulance. C/O of left lower leg pain 8/10 on pain scale for x3 days. Pt also has nausea and vomitting for x3 days. A/Ox4; gait is unsteady due to left leg pain. Pt reports she has history of DM2, x7 heart attacks in the past and a double bypass, kidney problems and high BP. She reports she has not been taking medications for 2 months. She reports she is homeless. Surgical scar noted on her chest. Left leg pain noted edematous and warm to touch.
--- NOTE | 2019-09-18 14:04 | Emergency Room Report ---
History of Present Illness General Chief Complaint: Vomiting Source: Patient, EMS (Kareen Orlando) Present Illness HPI 39-year-old female presents to the emergency department complaining of 10 out of 10 severity pain to the left lower extremity with erythema, swelling and redness progressive x4 days in addition to nausea and vomiting x1 day. Patient reports completed history of multiple previous myocardial infarctions, CABG placement in 2011, diabetes, high blood pressure and renal insufficiency just to name a few. Patient reports she has not been on any of her medications for almost 2 months now as she is homeless and they were stolen. Patient can only recall being prescribed Coreg, Lasix, insulin. Patient reports chills she states she believes she has a fever but she has not been able to check. She denies trauma or fall she denies cough, chest pain or palpitations. Patient reports dyspnea on exertion and states that this is been ongoing for over a year. Patient shortness of breath. She reports that she took some Motrin yesterday even though she is not supposed to take that medication. She denies having any medications at all today. pain is exacerbated with attempts to weight bear/walk. She denies suspicion of fx. She denies recent travel or ill contacts. She denies constipation or diarrhea. Denies polydipsia or polyurea. No other aggravating or relieving factors. (Kareen Orlando) Allergies: Coded Allergies: CODEINE (Verified Allergy, Mild, 01/25/10) Patient History Past Medical History: see triage record, old chart reviewed, DM, HTN, PR, arrhyth, renal disease, other - renal dysfunction Past Surgical History: CABG Pertinent Family History: none Now: No Reviewed Nursing Documentation: PMH: Agreed; PSxH: Agreed (Kareen Orlando) Nursing Documentation-PMH Hx Hypertension: Yes Hx Diabetes: Yes (Kareen Orlando) Review of Systems All Other Systems: negative except mentioned in HPI (Kareen Orlando) Physical Exam Vital Signs Date Time Temp Pulse Resp B/P (MAP) Pulse Ox O2 Delivery O2 Flow Rate FiO2 09/18/19 13:28 99.9 118 24 146/93 (110) 99 Room Air Sp02 EP Interpretation: reviewed, normal General Appearance: alert, GCS 15, non-toxic, mild distress Head: normocephalic, atraumatic Eyes: bilateral eye normal inspection, bilateral eye PERRL ENT: hearing grossly normal, normal voice Neck: full range of motion Respiratory: lungs clear, normal breath sounds, no respiratory distress, no accessory muscle use, no wheezing, speaking full sentences Cardiovascular #1: regular rate, rhythm, normal capillary refill, tachycardia, edema - Left LE 1+ non pitting Cardiovascular #2: 2+ dorsalis pedis (R), 2+ dorsalis pedis (L) Gastrointestinal: normal bowel sounds, non tender, soft, non-distended, no guarding Genitourinary: normal inspection, no CVA tenderness Musculoskeletal: gait/station normal, normal range of motion, tender - LLE TTP , calf and thigh, no obvious deformity, able to bear minimal weight, can flex and extend, erythema, warmth, swelling noted, no obivous open wounds. NVI Neurologic: alert, oriented x3, responsive, motor strength/tone normal, sensory intact, speech normal, grossly normal Psychiatric: judgement/insight normal Skin: warm/dry, other - Left lower extremity calf with erythema, swelling, warmth. No obvious open wounds, bleeding, blisters, pustules or vesicles. (Kareen Orlando) Medical Decision Making PA Attestation Dr. Jeffers is my supervising Physician whom patient management has been discussed with. (Kareen Orlando) Diagnostic Impression: Primary Impression: Sepsis Qualified Codes: A41.9 - Sepsis, unspecified organism Additional Impressions: Leukocytosis Qualified Codes: D72.829 - Elevated white blood cell count, unspecified Cellulitis Qualified Codes: L03.116 - Cellulitis of left lower limb Renal insufficiency ER Course 39-year-old female presents to the emergency department complaining of 10 out of 10 severity pain to the left lower extremity with erythema, swelling and redness progressive x4 days in addition to nausea and vomiting x1 day. Patient reports completed history of multiple previous myocardial infarctions, CABG placement in 2012, diabetes, high blood pressure and renal insufficiency just to name a few. Patient reports she has not been on any of her medications for almost 2 months now as she is homeless and they were stolen. Patient can only recall being prescribed Coreg, Lasix, insulin. Patient reports chills she states she believes she has a fever but she has not been able to check. She denies trauma or fall she denies cough, chest pain or palpitations. Patient reports dyspnea on exertion and states that this is been ongoing for over a year. Patient shortness of breath. She reports that she took some Motrin yesterday even though she is not supposed to take that medication. She denies having any medications at all today. pain is exacerbated with attempts to weight bear/walk. She denies suspicion of fx. She denies recent travel or ill contacts. She denies constipation or diarrhea. Denies polydipsia or polyurea. No other aggravating or relieving factors. Ddx considered but are not limited to Cellulitis, DVT, varicose vein, PAD, Venous insufficiency, Sepsis, gastritis, hyperglycemia, necrotizing fasciitis, MSK injury just to name a few. Vital signs: Tachycardic, other VS are WNL, pt. is afebrile H&PE are most consistent with medically complicated patient with suspected DVT/ cellulitis/sepsis, and dehydration. ORDERS: -AccuCheck: 126 CMP: glucose 149, elevated alk phos 203 CBC with Diff,* WBC 22k -UA: WNL -Urine Hcg: Negative PT/PTT: WNL Lactic Acid: 2.90 reflexed lactic acid: -Troponin: 0.004 WNL -BNP:7250 -Lipase: 70 Blood Cultures: Pending -CXR: cardiomegaly otherwise WNL -EK sinus tachy - LE duplex U/s to R/O dvt.---Negative-- prominent lymph node ED INTERVENTIONS: - NS Bolus IV- 30cc/kg , (initial 500cc given prior to receipt of BNP) -4mg Morphine IV -4mg Zofran IV -2.25g Zosyn DISPOSITION: at this time pt. will be admitted to Dr. Duffy for Sepsis, Cellulitis,and renal insufficiency Dr. Duffy agreed to admit the pt. and to continue pt. care management. (Kareen Orlando) ER Course I discussed and reviewed the findings with AYANNA Orlando. I evaluated the patient and agree that patient requires admission. I endorsed case to Dr Gates. (Imtiaz Jeffers MD) EKG Diagnostic Results EP Interpretation: Dr. Jeffers Rate: tachycardiac - 114 Rhythm: NSR ST Segments: no acute changes ASA given to the pt in ED: No PA Scribe Text This Interpretation was scribed by AYANNA Orlando. (Kareen Orlando) Chest X-Ray Diagnostic Results Chest X-Ray Diagnostic Results : Chest X-Ray Ordered: Yes # of Views/Limited/Complete: 1 View Indication: Chest Pain EP Interpretation: Yes AYANNA Xray: Interpretation reviewed, by supervising MD Interpretation: no consolidation, no effusion, no pneumothorax, no acute cardiopulmonary disease, other - cardiomegaly Impression: Other - cardiomegaly Electronically Signed by: Kareen Orlando PA-C (Kareen Orlando) CT/MRI/US Diagnostic Results CT/MRI/US Diagnostic Results : Imaging Test Ordered: Left LE Duplex Impression Negative-- prominent lymph node-- Per support technician. (Kareen Orlando) Last Vital Signs Date Time Temp Pulse Resp B/P (MAP) Pulse Ox O2 Delivery O2 Flow Rate FiO2 09/18/19 13:28 99.9 118 24 146/93 (110) 99 Room Air (Kareen Orlando) Status: improved (Imtiaz Jeffers MD) Disposition: ADMITTED INPATIENT Condition: Serious Referrals: NON PHYSICIAN (PCP) Kareen Orlando Sep 18, 2019 14:04 Imtiaz Jeffers MD Sep 18, 2019 17:40
[2019-09-18 14:18] VITALS: BP 146/93
--- NOTE | 2019-09-18 14:26 | NUR ---
ED Nurse Note: CXR done at bedside, venous duplex being done at bedside now. Blood drawn and sent to lab. Patient unable to void now. Blood sugar 129 mg/dl.
[2019-09-18] MEDS ORDERED: Morphine Sulfate 4mg/ml Inj (IV USE ONLY) IVP ONE (14:30)
[2019-09-18 14:33] LABS: HEMOGLOBIN 17.1 G/DL (12.0-16.0); MEAN CORPUSCULAR VOLUME 84 FL (80-99); PLATELET COUNT 219 K/UL (150-450); RED BLOOD COUNT 6.11 M/UL (4.20-5.40); RED CELL DISTRIBUTION WIDTH 12.9 % (11.6-14.8)
[2019-09-18 14:34] LABS: WHITE BLOOD COUNT 22.2 K/UL (4.8-10.8)
[2019-09-18 14:45] LABS: INR 0.9 (0.9-1.1)
[2019-09-18 14:51] LABS: ANION GAP 12 mmol/L (5-15); BLOOD UREA NITROGEN 21 mg/dL (7-18); CALCIUM 10.4 MG/DL (8.5-10.1); CARBON DIOXIDE 23 MMOL/L (21-32); CHLORIDE 94 MMOL/L (98-107); CREATININE 2.6 MG/DL (0.55-1.30); POTASSIUM 4.5 MMOL/L (3.5-5.1); SODIUM 129 MMOL/L (136-145)
--- NOTE | 2019-09-18 14:52 | Diagnostic Imaging Report ---
Indication: Shortness of breath Technique: One view of the chest Comparison: 07/21/2017 Findings: The heart is enlarged. The lungs and pleural spaces are clear. There are median sternotomy sutures Impression: Cardiomegaly. No acute process
[2019-09-18 14:55] LABS: ALANINE AMINOTRANSFERASE 42 U/L (12-78); ALBUMIN 2.3 G/DL (3.4-5.0); ALBUMIN/GLOBULIN RATIO 0.3 (1.0-2.7); ALKALINE PHOSPHATASE 203 U/L (46-116); ASPARTATE AMINO TRANSFERASE 23 U/L (15-37); BILIRUBIN,TOTAL 0.5 MG/DL (0.2-1.0)
[2019-09-18] MEDS ORDERED: Piperacillin/Tazobactam 2.25 GM in NS 110 ML IVPB ONE (15:00)
--- NOTE | 2019-09-18 15:25 | Diagnostic Imaging Report ---
Indication: Left leg pain Technique: Grayscale and duplex images of the left lower extremity veins Comparison: none Findings: Grayscale and duplex images History no evidence of intraluminal thrombus. Normal phasic Doppler waveforms, demonstrating normal augmentation response. No evidence of valvular insufficiency. Normal compressibility. Prominent lymph node is seen in the left groin Impression: Negative for evidence of left lower extremity venous thrombosis
[2019-09-18] MEDS ORDERED: Sodium Chloride 2,200 ML IVLG ONE (15:45)
[2019-09-18 15:57] LABS: APPEARANCE,URINE CLEAR; BILIRUBIN, URINE NEGATIVE (NEGATIVE); COLOR,URINE PALE YELLOW; GLUCOSE, URINE (UA) NEGATIVE (NEGATIVE); KETONES,URINE NEGATIVE (NEGATIVE); LEUKOCYTE ESTERASE ,URINE NEGATIVE (NEGATIVE); NITRITE,URINE NEGATIVE (NEGATIVE); PH,URINE 7 (4.5-8.0); PROTEIN,URINE 4+ (NEGATIVE); UROBILINOGEN,URINE NORMAL MG/DL (0.0-1.0)
--- NOTE | 2019-09-18 16:00 | NUR ---
ED Nurse Note: Patient asleep in bed. No signs of distress. LA reflex sent.
--- NOTE | 2019-09-18 17:14 | NUR ---
ED Nurse Note: Pt transferred to room 205-2 w/out incidence, report given to CHUCKIE Shelley. Patient remains in same condition.
--- NOTE | 2019-09-18 17:15 | NUR ---
NURSE NOTES: Patient transferred from ED via gurney, Received report from Carly/RN. Patient is awake and alert, No acute distress/SOB noted. IV site patent, no bleeding or infiltration noted. Skin intact. Belonging check done, and signed. monitoring specialist placed on patient, reading Sinus tachy. Breathing even and unlabored. Bed in low position and locked, Call light within reach. Will contact MD for Admission order.
[2019-09-18] MEDS ORDERED: HYDROcodone/Acetamin 5/325 tab ORAL PRN (18:45)
[2019-09-18 20:00] VITALS: BP 137/75
--- NOTE | 2019-09-18 20:05 | NUR ---
HAND-OFF: Report given to Kobe/RN, Patient is asleep, in stable condition. Endorsed plan of care.
--- NOTE | 2019-09-18 20:10 | NUR ---
NURSE NOTES: Pt received from [facility], currently asleep in bed with no acute s/s of distress noted. IV site asymptomatic and patent. Bed in lowest position, call light and belongings within reach.
[2019-09-18] MEDS ORDERED: Piperacillin/Tazobactam 2.25 GM in D5W 55 ML IVPB SCH (22:00)
[2019-09-18] MEDS: Zosyn 3.375gm q8h **Extended infusion IVPB SCH ×2 (22:41)
[2019-09-18] MEDS: Morphine Sulfate 4mg/ml Inj (IV USE ONLY) IVP PRN (22:43)
[2019-09-18] MEDS: NovoLOG Insulin Flexpen SUBQ SCH (22:47)
[2019-09-19] VITALS: BP 124/76
[2019-09-19] MEDS: Morphine Sulfate 4mg/ml Inj (IV USE ONLY) IVP PRN ×3 (04:19→17:48)
[2019-09-19] MEDS: NovoLOG Insulin Flexpen SUBQ SCH ×4 (06:23→21:23)
[2019-09-19] MEDS: Zosyn 3.375gm q8h **Extended infusion IVPB SCH ×6 (06:29→22:49)
[2019-09-19 07:03] LABS: MEAN CORPUSCULAR VOLUME 84 FL (80-99); PLATELET COUNT 160 K/UL (150-450); RED BLOOD COUNT 4.15 M/UL (4.20-5.40); RED CELL DISTRIBUTION WIDTH 13.2 % (11.6-14.8); WHITE BLOOD COUNT 15.2 K/UL (4.8-10.8)
--- NOTE | 2019-09-19 07:15 | NUR ---
HAND-OFF: Report given to CHUCKIE Briseno. Plan of care endorsed.
--- NOTE | 2019-09-19 07:20 | NUR ---
NURSE NOTES: I received the patient awake and resting in bed. Patient does not display any signs of distress or SOB. Bed in the lowest position and call light within reach. I will continue to monitor the patient and implement care.
[2019-09-19 07:41] LABS: ALANINE AMINOTRANSFERASE 24 U/L (12-78); ALBUMIN 1.4 G/DL (3.4-5.0); ALBUMIN/GLOBULIN RATIO 0.3 (1.0-2.7); ALKALINE PHOSPHATASE 133 U/L (46-116); ANION GAP 9 mmol/L (5-15); ASPARTATE AMINO TRANSFERASE 13 U/L (15-37); BILIRUBIN,TOTAL 0.2 MG/DL (0.2-1.0); BLOOD UREA NITROGEN 26 mg/dL (7-18); CALCIUM 8.8 MG/DL (8.5-10.1); CARBON DIOXIDE 24 MMOL/L (21-32); CHLORIDE 105 MMOL/L (98-107); CHOLESTEROL 266 MG/DL (< 200); CREATININE 2.9 MG/DL (0.55-1.30); HDL CHOLESTEROL 50 MG/DL (40-60); POTASSIUM 4.4 MMOL/L (3.5-5.1); SODIUM 137 MMOL/L (136-145); TRIGLYCERIDES 159 MG/DL (30-150)
[2019-09-19 08:00] VITALS: BP 147/85
--- NOTE | 2019-09-19 08:05 | NUR ---
NURSE NOTES: Notified Dr. Gates about the patient's blood culture result. Blood culture positive for gram positive cocci in chains, 2 out of four bottles. I will await any new orders. Addendum: 09/19/19 at 0846 by NARINDER GROSSMAN RN Dr. Gates responded and ordered Vanco and a physician consult for Dr. De La Rosa.
[2019-09-19] MEDS: Aspirin EC 81mg tab ORAL SCH (08:57)
[2019-09-19] MEDS ORDERED: Docusate 100mg cap ORAL SCH (09:00)
[2019-09-19] MEDS: Enoxaparin 40mg Inj SUBQ SCH (09:00)
[2019-09-19] MEDS ORDERED: Vancomycin 1.5gm/NS Premix IVPB ONE (10:00)
--- NOTE | 2019-09-19 11:49 | Cardiology Progress Note ---
Assessment/Plan Assessment/Plan The patient is seen and examined, full consult note is dictated. Objective Last 24 Hour Vital Signs Date Time Temp Pulse Resp B/P (MAP) Pulse Ox O2 Delivery O2 Flow Rate FiO2 09/19/19 09:00 Room Air 09/19/19 08:58 95 147/85 09/19/19 08:00 97.9 95 17 147/85 (105) 09/19/19 07:37 99 09/19/19 04:00 98 09/19/19 00:00 106 09/19/19 00:00 99.5 103 20 124/76 (92) 97 09/18/19 21:00 Room Air 09/18/19 20:00 107 09/18/19 20:00 99.5 110 20 137/75 (95) 99 09/18/19 18:44 Room Air 09/18/19 17:15 99.1 106 20 143/87 98 Room Air 09/18/19 15:07 99.9 09/18/19 14:28 113 20 Room Air 09/18/19 14:18 99.9 113 24 146/93 99 Room Air 09/18/19 13:28 99.9 118 24 146/93 (110) 99 Room Air Intake and Output 09/18/19 09/19/19 19:00 07:00 Intake Total 2700 ml 510.0 ml Output Total 500 ml 500 ml Balance 2200 ml 10.0 ml Intake Oral 400 ml IV Total 2700 ml 110.0 ml Output Urine Total 500 ml 500 ml # Voids 1 Laboratory Tests Test 09/18/19 14:00 09/18/19 14:50 09/18/19 15:25 09/18/19 15:48 White Blood Count 22.2 K/UL (4.8-10.8) *H Red Blood Count 6.11 M/UL (4.20-5.40) H Hemoglobin 17.1 G/DL (12.0-16.0) H Hematocrit 51.0 % (37.0-47.0) H Mean Corpuscular Volume 84 FL (80-99) Mean Corpuscular Hemoglobin 27.9 PG (27.0-31.0) Mean Corpuscular Hemoglobin Concent 33.4 G/DL (32.0-36.0) Red Cell Distribution Width 12.9 % (11.6-14.8) Platelet Count 219 K/UL (150-450) Mean Platelet Volume 10.6 FL (6.5-10.1) H Neutrophils (%) (Auto) % (45.0-75.0) Lymphocytes (%) (Auto) % (20.0-45.0) Monocytes (%) (Auto) % (1.0-10.0) Eosinophils (%) (Auto) % (0.0-3.0) Basophils (%) (Auto) % (0.0-2.0) Differential Total Cells Counted 100 Neutrophils % (Manual) 84 % (45-75) H Lymphocytes % (Manual) 1 % (20-45) L Monocytes % (Manual) 2 % (1-10) Eosinophils % (Manual) 1 % (0-3) Basophils % (Manual) 0 % (0-2) Band Neutrophils 12 % (0-8) H Platelet Estimate Adequate Platelet Morphology Normal Red Blood Cell Morphology Normal Prothrombin Time 9.8 SEC (9.30-11.50) Prothromb Time International Ratio 0.9 (0.9-1.1) Activated Partial Thromboplast Time 34 SEC (23-33) H Sodium Level 129 MMOL/L (136-145) L Potassium Level 4.5 MMOL/L (3.5-5.1) Chloride Level 94 MMOL/L (98-107) L Carbon Dioxide Level 23 MMOL/L (21-32) Anion Gap 12 mmol/L (5-15) Blood Urea Nitrogen 21 mg/dL (7-18) H Creatinine 2.6 MG/DL (0.55-1.30) H Estimat Glomerular Filtration Rate 25.0 mL/min (>60) Glucose Level 149 MG/DL (74-106) H Calcium Level 10.4 MG/DL (8.5-10.1) H Total Bilirubin 0.5 MG/DL (0.2-1.0) Aspartate Amino Transf (AST/SGOT) 23 U/L (15-37) Alanine Aminotransferase (ALT/SGPT) 42 U/L (12-78) Alkaline Phosphatase 203 U/L (46-116) H Troponin I 0.004 ng/mL (0.000-0.056) Pro-B-Type Natriuretic Peptide 7250 pg/mL (0-125) H Total Protein 9.1 G/DL (6.4-8.2) H Albumin 2.3 G/DL (3.4-5.0) L Globulin 6.8 g/dL Albumin/Globulin Ratio 0.3 (1.0-2.7) L Lipase 70 U/L (73-393) L Lactic Acid Level 2.90 mmol/L (0.4-2.0) H 1.40 mmol/L (0.66-2.22) Urine Color Pale yellow Urine Appearance Clear Urine pH 7 (4.5-8.0) Urine Specific [place] 1.005 (1.005-1.035) Urine Protein 4+ (NEGATIVE) H Urine Glucose (UA) Negative (NEGATIVE) Urine Ketones Negative (NEGATIVE) Urine Blood 1+ (NEGATIVE) H Urine Nitrite Negative (NEGATIVE) Urine Bilirubin Negative (NEGATIVE) Urine Urobilinogen Normal MG/DL (0.0-1.0) Urine Leukocyte Esterase Negative (NEGATIVE) Urine RBC 2-4 /HPF (0 - 2) H Urine WBC 0-2 /HPF (0 - 2) Urine Squamous Epithelial Cells Occasional /LPF Urine Bacteria Few /HPF (NONE) Urine HCG, Qualitative Negative (NEGATIVE) Test 09/19/19 05:50 White Blood Count 15.2 K/UL (4.8-10.8) H Red Blood Count 4.15 M/UL (4.20-5.40) L Hemoglobin 12.0 G/DL (12.0-16.0) Hematocrit 35.0 % (37.0-47.0) #L Mean Corpuscular Volume 84 FL (80-99) Mean Corpuscular Hemoglobin 28.8 PG (27.0-31.0) Mean Corpuscular Hemoglobin Concent 34.1 G/DL (32.0-36.0) Red Cell Distribution Width 13.2 % (11.6-14.8) Platelet Count 160 K/UL (150-450) Mean Platelet Volume 9.9 FL (6.5-10.1) Neutrophils (%) (Auto) % (45.0-75.0) Lymphocytes (%) (Auto) % (20.0-45.0) Monocytes (%) (Auto) % (1.0-10.0) Eosinophils (%) (Auto) % (0.0-3.0) Basophils (%) (Auto) % (0.0-2.0) Differential Total Cells Counted 100 Neutrophils % (Manual) 87 % (45-75) H Lymphocytes % (Manual) 6 % (20-45) L Monocytes % (Manual) 6 % (1-10) Eosinophils % (Manual) 1 % (0-3) Basophils % (Manual) 0 % (0-2) Band Neutrophils 0 % (0-8) Platelet Estimate Adequate Platelet Morphology Giant Platelets Occasional Red Blood Cell Morphology Normal Sodium Level 137 MMOL/L (136-145) Potassium Level 4.4 MMOL/L (3.5-5.1) Chloride Level 105 MMOL/L (98-107) Carbon Dioxide Level 24 MMOL/L (21-32) Anion Gap 9 mmol/L (5-15) Blood Urea Nitrogen 26 mg/dL (7-18) H Creatinine 2.9 MG/DL (0.55-1.30) H Estimat Glomerular Filtration Rate 22.1 mL/min (>60) Glucose Level 113 MG/DL (74-106) H Hemoglobin A1c 9.3 % (4.3-6.0) H Calcium Level 8.8 MG/DL (8.5-10.1) Total Bilirubin 0.2 MG/DL (0.2-1.0) Aspartate Amino Transf (AST/SGOT) 13 U/L (15-37) L Alanine Aminotransferase (ALT/SGPT) 24 U/L (12-78) Alkaline Phosphatase 133 U/L (46-116) H Total Protein 6.0 G/DL (6.4-8.2) #L Albumin 1.4 G/DL (3.4-5.0) L Globulin 4.6 g/dL Albumin/Globulin Ratio 0.3 (1.0-2.7) L Triglycerides Level 159 MG/DL (30-150) H Cholesterol Level 266 MG/DL (< 200) H LDL Cholesterol 171 mg/dL (<100) H HDL Cholesterol 50 MG/DL (40-60) Cholesterol/HDL Ratio 5.3 (3.3-4.4) H Thyroid Stimulating Hormone (TSH) 0.379 uiU/mL (0.358-3.740) Microbiology Date/Time Source Procedure Growth Status 09/18/19 14:00 Blood Blood Culture - Preliminary Resulted Leonardo Dias MD Sep 19, 2019 11:49
[2019-09-19 12:00] VITALS: BP 150/90
--- NOTE | 2019-09-19 12:41 | Cardiology Report ---
APPROVED REPORT EKG Measurement Heart [id number] Sinus tachycardia Biatrial enlargement Anterior infarct, age undetermined Abnormal ECG
--- NOTE | 2019-09-19 13:14 | Infectious Diseases Prog Note ---
Assessment/Plan Problems: (1) Cellulitis Assessment & Plan: complicated with bacteremia , suspect streptococcus VS enterococcus spp, will switch vancomycin to zyvox pending final blood culture and to avoid nephrotoxicity (2) Sepsis Assessment & Plan: with gram positive cocci in chains, suspect streptococcus VS enterococcus spp , will switch vancomycin to zyvox, pending final blood culture . will order echo to rule out vegetations (3) Renal insufficiency Assessment & Plan: will stop vancomycin to avoid nephrotoxicity, continue hydration with renally dosed meds as per pharmacy , nephrology is following (4) Tachycardia Assessment & Plan: suspect due to the above, continue hydration and antibiotics , cards eval is in progress (5) Diabetes mellitus Assessment & Plan: poorly controlled recommend tight glycemic control to keep blood glucose between 100-140 Subjective Allergies: Coded Allergies: CODEINE (Verified Allergy, Mild, 01/25/10) Objective Vital Signs Last 24 Hour Vital Signs Date Time Temp Pulse Resp B/P (MAP) Pulse Ox O2 Delivery O2 Flow Rate FiO2 09/19/19 12:00 98.7 87 18 150/90 (110) 98 09/19/19 11:57 97.9 09/19/19 11:37 86 09/19/19 09:00 Room Air 09/19/19 08:58 95 147/85 09/19/19 08:00 97.9 95 17 147/85 (105) 09/19/19 07:37 99 09/19/19 04:00 98 09/19/19 00:00 106 09/19/19 00:00 99.5 103 20 124/76 (92) 97 09/18/19 21:00 Room Air 09/18/19 20:00 107 09/18/19 20:00 99.5 110 20 137/75 (95) 99 09/18/19 18:44 Room Air 09/18/19 17:15 99.1 106 20 143/87 98 Room Air 09/18/19 15:07 99.9 09/18/19 14:28 113 20 Room Air 09/18/19 14:18 99.9 113 24 146/93 99 Room Air 09/18/19 13:28 99.9 118 24 146/93 (110) 99 Room Air Height (Feet): 5 Height (Inches): 4.00 Weight (Pounds): 165 Microbiology Date/Time Source Procedure Growth Status 09/18/19 14:00 Blood Blood Culture - Preliminary Resulted Laboratory Tests Test 09/18/19 14:00 09/18/19 14:50 09/18/19 15:25 09/18/19 15:48 White Blood Count 22.2 K/UL (4.8-10.8) *H Red Blood Count 6.11 M/UL (4.20-5.40) H Hemoglobin 17.1 G/DL (12.0-16.0) H Hematocrit 51.0 % (37.0-47.0) H Mean Corpuscular Volume 84 FL (80-99) Mean Corpuscular Hemoglobin 27.9 PG (27.0-31.0) Mean Corpuscular Hemoglobin Concent 33.4 G/DL (32.0-36.0) Red Cell Distribution Width 12.9 % (11.6-14.8) Platelet Count 219 K/UL (150-450) Mean Platelet Volume 10.6 FL (6.5-10.1) H Neutrophils (%) (Auto) % (45.0-75.0) Lymphocytes (%) (Auto) % (20.0-45.0) Monocytes (%) (Auto) % (1.0-10.0) Eosinophils (%) (Auto) % (0.0-3.0) Basophils (%) (Auto) % (0.0-2.0) Differential Total Cells Counted 100 Neutrophils % (Manual) 84 % (45-75) H Lymphocytes % (Manual) 1 % (20-45) L Monocytes % (Manual) 2 % (1-10) Eosinophils % (Manual) 1 % (0-3) Basophils % (Manual) 0 % (0-2) Band Neutrophils 12 % (0-8) H Platelet Estimate Adequate Platelet Morphology Normal Red Blood Cell Morphology Normal Prothrombin Time 9.8 SEC (9.30-11.50) Prothromb Time International Ratio 0.9 (0.9-1.1) Activated Partial Thromboplast Time 34 SEC (23-33) H Sodium Level 129 MMOL/L (136-145) L Potassium Level 4.5 MMOL/L (3.5-5.1) Chloride Level 94 MMOL/L (98-107) L Carbon Dioxide Level 23 MMOL/L (21-32) Anion Gap 12 mmol/L (5-15) Blood Urea Nitrogen 21 mg/dL (7-18) H Creatinine 2.6 MG/DL (0.55-1.30) H Estimat Glomerular Filtration Rate 25.0 mL/min (>60) Glucose Level 149 MG/DL (74-106) H Calcium Level 10.4 MG/DL (8.5-10.1) H Total Bilirubin 0.5 MG/DL (0.2-1.0) Aspartate Amino Transf (AST/SGOT) 23 U/L (15-37) Alanine Aminotransferase (ALT/SGPT) 42 U/L (12-78) Alkaline Phosphatase 203 U/L (46-116) H Troponin I 0.004 ng/mL (0.000-0.056) Pro-B-Type Natriuretic Peptide 7250 pg/mL (0-125) H Total Protein 9.1 G/DL (6.4-8.2) H Albumin 2.3 G/DL (3.4-5.0) L Globulin 6.8 g/dL Albumin/Globulin Ratio 0.3 (1.0-2.7) L Lipase 70 U/L (73-393) L Lactic Acid Level 2.90 mmol/L (0.4-2.0) H 1.40 mmol/L (0.66-2.22) Urine Color Pale yellow Urine Appearance Clear Urine pH 7 (4.5-8.0) Urine Specific [place] 1.005 (1.005-1.035) Urine Protein 4+ (NEGATIVE) H Urine Glucose (UA) Negative (NEGATIVE) Urine Ketones Negative (NEGATIVE) Urine Blood 1+ (NEGATIVE) H Urine Nitrite Negative (NEGATIVE) Urine Bilirubin Negative (NEGATIVE) Urine Urobilinogen Normal MG/DL (0.0-1.0) Urine Leukocyte Esterase Negative (NEGATIVE) Urine RBC 2-4 /HPF (0 - 2) H Urine WBC 0-2 /HPF (0 - 2) Urine Squamous Epithelial Cells Occasional /LPF Urine Bacteria Few /HPF (NONE) Urine HCG, Qualitative Negative (NEGATIVE) Test 09/19/19 05:50 White Blood Count 15.2 K/UL (4.8-10.8) H Red Blood Count 4.15 M/UL (4.20-5.40) L Hemoglobin 12.0 G/DL (12.0-16.0) Hematocrit 35.0 % (37.0-47.0) #L Mean Corpuscular Volume 84 FL (80-99) Mean Corpuscular Hemoglobin 28.8 PG (27.0-31.0) Mean Corpuscular Hemoglobin Concent 34.1 G/DL (32.0-36.0) Red Cell Distribution Width 13.2 % (11.6-14.8) Platelet Count 160 K/UL (150-450) Mean Platelet Volume 9.9 FL (6.5-10.1) Neutrophils (%) (Auto) % (45.0-75.0) Lymphocytes (%) (Auto) % (20.0-45.0) Monocytes (%) (Auto) % (1.0-10.0) Eosinophils (%) (Auto) % (0.0-3.0) Basophils (%) (Auto) % (0.0-2.0) Differential Total Cells Counted 100 Neutrophils % (Manual) 87 % (45-75) H Lymphocytes % (Manual) 6 % (20-45) L Monocytes % (Manual) 6 % (1-10) Eosinophils % (Manual) 1 % (0-3) Basophils % (Manual) 0 % (0-2) Band Neutrophils 0 % (0-8) Platelet Estimate Adequate Platelet Morphology Giant Platelets Occasional Red Blood Cell Morphology Normal Sodium Level 137 MMOL/L (136-145) Potassium Level 4.4 MMOL/L (3.5-5.1) Chloride Level 105 MMOL/L (98-107) Carbon Dioxide Level 24 MMOL/L (21-32) Anion Gap 9 mmol/L (5-15) Blood Urea Nitrogen 26 mg/dL (7-18) H Creatinine 2.9 MG/DL (0.55-1.30) H Estimat Glomerular Filtration Rate 22.1 mL/min (>60) Glucose Level 113 MG/DL (74-106) H Hemoglobin A1c 9.3 % (4.3-6.0) H Calcium Level 8.8 MG/DL (8.5-10.1) Total Bilirubin 0.2 MG/DL (0.2-1.0) Aspartate Amino Transf (AST/SGOT) 13 U/L (15-37) L Alanine Aminotransferase (ALT/SGPT) 24 U/L (12-78) Alkaline Phosphatase 133 U/L (46-116) H Troponin I Pending Total Protein 6.0 G/DL (6.4-8.2) #L Albumin 1.4 G/DL (3.4-5.0) L Globulin 4.6 g/dL Albumin/Globulin Ratio 0.3 (1.0-2.7) L Triglycerides Level 159 MG/DL (30-150) H Cholesterol Level 266 MG/DL (< 200) H LDL Cholesterol 171 mg/dL (<100) H HDL Cholesterol 50 MG/DL (40-60) Cholesterol/HDL Ratio 5.3 (3.3-4.4) H Thyroid Stimulating Hormone (TSH) 0.379 uiU/mL (0.358-3.740) Current Medications Medications (Trade) Dose Ordered Sig/Shahriar Route PRN Reason Start Time Stop Time Status Last Admin Dose Admin Acetaminophen/ Hydrocodone Bitart ([place] 5/325) 1 tab Q4H PRN ORAL Moderate Pain (Pain Scale 4-6) 09/18/19 18:45 09/25/19 18:44 Amlodipine Besylate (Norvasc) 10 mg DAILY ORAL 09/19/19 09:00 10/19/19 08:59 09/19/19 08:58 Aspirin (Ecotrin) 81 mg DAILY ORAL 09/19/19 09:00 10/19/19 08:59 09/19/19 08:57 Cetirizine HCl (ZyrTEC) 10 mg DAILY ORAL 09/19/19 09:00 10/19/19 08:59 09/19/19 08:57 Dextrose (Dextrose 50%) 25 ml Q30M PRN IV Hypoglycemia 09/18/19 18:45 10/18/19 18:44 Dextrose (Dextrose 50%) 50 ml Q30M PRN IV Hypoglycemia 09/18/19 18:45 10/18/19 18:44 Docusate Sodium (Colace) 100 mg TWICE A DAY ORAL 09/19/19 09:00 10/19/19 08:59 Enoxaparin Sodium (Lovenox) 40 mg DAILY SUBQ 09/19/19 09:00 10/19/19 08:59 09/19/19 09:00 Gabapentin (Neurontin) 600 mg DAILY ORAL 09/19/19 09:00 10/19/19 08:59 09/19/19 08:57 Insulin Aspart (NovoLOG) BEFORE MEALS AND HS SUBQ 09/18/19 21:00 10/18/19 20:59 09/19/19 12:19 Linezolid 300 ml @ 300 mls/hr Q12HR IVPB 09/19/19 21:00 09/26/19 20:59 UNV Morphine Sulfate (Morphine Sulfate) 3 mg Q6H PRN IVP Severe Pain (Pain Scale 7-10) 09/18/19 18:45 09/25/19 18:44 09/19/19 11:27 Pantoprazole (Protonix) 40 mg DAILY ORAL 09/19/19 09:00 10/19/19 08:59 09/19/19 08:57 Piperacillin Sod/ Tazobactam Sod 3.375 gm/Sodium Chloride 110 ml @ 27.5 mls/hr EVERY 8 HOURS IVPB 09/18/19 22:00 09/23/19 21:59 09/19/19 06:29 Janine De La Rosa M.D. Sep 19, 2019 13:14
[2019-09-19] MEDS ORDERED: Tubing IV Secondary IV ONE (13:43)
[2019-09-19] MEDS ORDERED: NS 275ml ONE (13:43)
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
[2019-09-19] MEDS ORDERED: Lisinopril 10mg tab ORAL SCH (15:15)
[2019-09-19] MEDS ORDERED: Carvedilol 12.5mg tab ORAL SCH (15:15)
[2019-09-19] MEDS ORDERED: Imdur 30mg tab ORAL SCH (15:35)
[2019-09-19 16:00] VITALS: BP 131/72
--- NOTE | 2019-09-19 16:49 | History & Physical ---
History and Physical History & Physicial patient seen and examined. Dictation completed. 0445 PM Taye Gates MD Sep 19, 2019 16:49
--- NOTE | 2019-09-19 16:50 | General Progress Note ---
Assessment/Plan Status: stable Assessment/Plan: Full dictation in progress 1- CHF exacerbation 2- Sepsis- LLE cellulitis ..... ....... Plan ID, Nephro, Cardiology consulted Subjective Allergies: Coded Allergies: CODEINE (Verified Allergy, Mild, 01/25/10) Objective Last 24 Hour Vital Signs Date Time Temp Pulse Resp B/P (MAP) Pulse Ox O2 Delivery O2 Flow Rate FiO2 09/19/19 16:26 131/72 09/19/19 16:26 131/72 09/19/19 16:26 94 131/72 09/19/19 16:00 98.8 94 17 131/72 (91) 96 09/19/19 12:00 98.7 87 18 150/90 (110) 98 09/19/19 11:57 97.9 09/19/19 11:37 86 09/19/19 09:00 Room Air 09/19/19 08:58 95 147/85 09/19/19 08:00 97.9 95 17 147/85 (105) 09/19/19 07:37 99 09/19/19 04:00 98 09/19/19 00:00 106 09/19/19 00:00 99.5 103 20 124/76 (92) 97 09/18/19 21:00 Room Air 09/18/19 20:00 107 09/18/19 20:00 99.5 110 20 137/75 (95) 99 09/18/19 18:44 Room Air 09/18/19 17:15 99.1 106 20 143/87 98 Room Air Intake and Output 09/18/19 09/19/19 18:59 06:59 Intake Total 2700 ml 510.0 ml Output Total 500 ml 500 ml Balance 2200 ml 10.0 ml Intake Oral 400 ml IV Total 2700 ml 110.0 ml Output Urine Total 500 ml 500 ml # Voids 1 Laboratory Tests 09/19/19 05:50: White Blood Count 15.2H, Red Blood Count 4.15L, Hemoglobin 12.0, Hematocrit 35.0 #L, Mean Corpuscular Volume 84, Mean Corpuscular Hemoglobin 28.8, Mean Corpuscular Hemoglobin Concent 34.1, Red Cell Distribution Width 13.2, Platelet Count 160, Mean Platelet Volume 9.9, Neutrophils (%) (Auto) , Lymphocytes (%) ( Auto) , Monocytes (%) (Auto) , Eosinophils (%) (Auto) , Basophils (%) (Auto) , Differential Total Cells Counted 100, Neutrophils % (Manual) 87H, Lymphocytes % (Manual) 6L, Monocytes % (Manual) 6, Eosinophils % (Manual) 1, Basophils % ( Manual) 0, Band Neutrophils 0, Platelet Estimate Adequate, Platelet Morphology , Giant Platelets Occasional, Red Blood Cell Morphology Normal, Sodium Level 137 , Potassium Level 4.4, Chloride Level 105, Carbon Dioxide Level 24, Anion Gap 9 , Blood Urea Nitrogen 26H, Creatinine 2.9H, Estimat Glomerular Filtration Rate 22.1, Glucose Level 113H, Hemoglobin A1c 9.3H, Calcium Level 8.8, Total Bilirubin 0.2, Aspartate Amino Transf (AST/SGOT) 13L, Alanine Aminotransferase ( ALT/SGPT) 24, Alkaline Phosphatase 133H, Troponin I 0.000, Total Protein 6.0#L, Albumin 1.4L, Globulin 4.6, Albumin/Globulin Ratio 0.3L, Triglycerides Level 159H, Cholesterol Level 266H, LDL Cholesterol 171H, HDL Cholesterol 50, Cholesterol/HDL Ratio 5.3H, Thyroid Stimulating Hormone (TSH) 0.379 Height (Feet): 5 Height (Inches): 4.00 Weight (Pounds): 165 Taye Gates MD Sep 19, 2019 16:50
--- NOTE | 2019-09-19 17:00 | Consultation ---
DATE OF CONSULTATION: 09/19/2019 CARDIOLOGY CONSULTATION CONSULTING PHYSICIAN: Leonardo Dias M.D. REFERRING PHYSICIAN: Taye Gates M.D. REASON FOR CONSULTATION: Management of shortness of breath in a patient with a history of coronary artery disease, status post 2-vessel coronary artery bypass graft surgery. HISTORY OF PRESENT ILLNESS: The patient is a very unfortunate 39-year-old lady who presents to the hospital with complaints of left lower extremity pain, erythema, warmth, and swelling that has been going on for about four days, with severe pain of about 10/10. The entire left leg, below the knee is red according to her. She claims that she is not capable of walking on it or bear any pressure on the left lower extremity. She presents to the hospital with fever of 99.9 degrees Fahrenheit. Initial blood pressure was 146/93 mmHg and heart rate was 118. In the emergency department, a 12-lead electrocardiogram showed sinus tachycardia, rate of 114 with evidence of LVH and left atrial enlargement, and poor R progression suggestive of possible anterior wall infarction, age indeterminate. She had associated dyspnea on exertion prior to this event, but denied any chest pain. Her cardiovascular history is significant for history of myocardial infarction, status post multiple percutaneous coronary intervention as well as 2-vessel coronary artery bypass graft surgery done at [facility]. PAST MEDICAL HISTORY: 1. Diabetes mellitus. 2. Hypertension. 3. Coronary artery disease, status post myocardial infarction, status post 2-vessel coronary artery bypass surgery. 4. Cardiac arrhythmia. 5. History of chronic kidney disease. PAST SURGICAL HISTORY: Coronary artery bypass graft surgery, apparently two-vessel. ALLERGIES: To codeine. MEDICATIONS: List of medications at home include albuterol inhaler every four hours, Norvasc 10 mg daily, aspirin 81 mg daily, benazepril 40 mg daily, bupropion SR 150 mg q.12 h., Zyrtec 10 mg daily, Plavix 75 mg daily, Colace 100 mg twice daily, fluticasone propionate nasal spray twice daily, gabapentin 900 mg twice daily, insulin glargine 40 units subcutaneous at bedtime, Humalog insulin 10 units subcutaneous a.c. and t.i.d. before meals, metformin 1000 mg twice daily, and oxycodone-acetaminophen 5-325 mg one tablet q.6 h. p.r.n. pain. FAMILY HISTORY: No premature coronary artery disease in first-degree relatives. HABITS: Denies any tobacco, alcohol, or illicit drug use. REVIEW OF SYSTEMS: A 12-system review done essentially negative except what was mentioned in history of present illness. PHYSICAL EXAMINATION: VITAL SIGNS: Blood pressure at the time of arrival to the hospital was 146/93 pulse of 118, respirations 24, and temperature 99.9 degrees Fahrenheit. O2 saturation 99% on room air. GENERAL: The patient is a very unfortunate 39-year-old lady who appears to be somewhat anxious, in no apparent respiratory distress. Alert and oriented x4. HEENT: Atraumatic and normocephalic. Anicteric. Pupils are equal, round, and reactive to light and accommodation. Extraocular muscles intact. NECK: JVP less than 5 cm. No carotid bruit. Carotid upstroke is 2+ bilaterally. CARDIOVASCULAR: Normal S1, S2. Regular rate and rhythm. Tachycardic. No gallops or rubs. 2/6 midsystolic murmur at left sternal border. PMI is at fourth intercostal space in the midclavicular line. LUNGS: Clear to auscultation bilaterally. ABDOMEN: Soft, nontender, and nondistended. No hepatosplenomegaly. Positive bowel sounds. EXTREMITIES: Right lower extremity, no evidence of edema, clubbing, or cyanosis. Left lower extremity, below the knee swollen and red in entirety with tenderness and warmth. Dorsalis pedis pulses 2+ bilaterally. LABORATORY FINDINGS: WBC is 22.2, hemoglobin 17.1, hematocrit 51, and platelet count 219,000. Sodium 129, potassium 4.5, chloride 94, bicarbonate 23, BUN 21, and creatinine 2.6. Glucose is 149. Calcium is 10.4. Troponin I 0.004. ProBNP was 7250. Chest x-ray showed sternal wires, cardiomegaly. No acute cardiopulmonary disease. ASSESSMENT AND PLAN: The patient is a very unfortunate 39-year-old female, seen in Cardiology consultation. 1. Stable coronary artery disease with no chest pain, history of coronary artery bypass graft surgery, two-vessel, multiple percutaneous coronary interventions. The patient requires to be on dual anti-platelet therapy. Currently off Plavix due to possible consideration for surgical intervention. Continue with aspirin 81 mg daily, and once surgical procedure is completed or not indicated, the patient will be placed on Plavix 75 mg daily. 12-lead electrocardiogram does not show any acute ischemic features. First troponin I level was within normal limits. We will obtain another troponin I level in this patient. A 2-D echocardiography will be done to assess LV systolic and diastolic function. Further therapeutic and diagnostic decision will be based on results of the echocardiography. 2. History of diabetes mellitus. 3. History of hypertension. We will continue the patient on amlodipine and may add metoprolol for double-product control. 4. Left lower extremity cellulitis. Infectious Disease feedback, surgical consultation to rule out compartment syndrome. 5. History of coronary artery disease, status post 2-vessel coronary artery bypass graft surgery. I would like to thank Dr. Gates for the courtesy of this consultation. Leonardo Dias M.D. DR: CODIE JOB#: [id number] CC:
[2019-09-19] MEDS: Docusate 100mg cap ORAL SCH (17:52)
--- NOTE | 2019-09-19 19:16 | NUR ---
HAND-OFF: Report given to CHUCKIE Xiong.
--- NOTE | 2019-09-19 19:20 | NUR ---
NURSE NOTES: Pt report received from ligia NOGUERA. pt remains stable. pt is alert and oriented times 4, able to follow commands. pt is on a veneer jointer showing NSR, no distress noted. pt is on Room air, able to sat at 99%, no distress noted. pt bed is low, locked, armed, bed rails up times 3, call light within reach. will follow plan of care.
[2019-09-19 20:00] VITALS: BP 121/68
[2019-09-19] MEDS ORDERED: Atorvastatin 20mg tab ORAL SCH ×2 (21:00)
[2019-09-19] MEDS: Carvedilol 12.5mg tab ORAL SCH (21:22)
[2019-09-20] VITALS: BP 123/69
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
--- NOTE | 2019-09-20 00:30 | History and Physical Report ---
DATE OF ADMISSION: 09/18/2019 SOURCE OF INFORMATION: The patient and EMR. HISTORY OF PRESENT ILLNESS: The patient is a 39-year-old female with worsening of the swelling of the left lower extremity for the last few days. The patient denies any chest pain or shortness of breath. Denies any trauma to the left lower extremity. Only gives history of prior surgery for the extractions of the venous system a couple of years ago. REVIEW OF SYSTEMS: All 12 elements of review of systems reviewed. Pertinent positive and negative as above. ALLERGIES: Codeine. PAST SURGICAL HISTORY: Including CABG. PAST MEDICAL HISTORY: Coronary artery disease, status post CABG. SOCIAL HISTORY: The patient is positive for tobacco use on a daily basis. Denies history of illicit drug abuse or alcohol abuse. CURRENT HOSPITAL MEDICATIONS: Including but not limited to aspirin, Coreg, Plavix, Lovenox, and sliding scale insulin. PHYSICAL EXAMINATION: VITAL SIGNS: Blood pressure 125/80, temperature 98.2, pulse oximetry 98% on room air, and respiratory rate 18. HEAD AND NECK: Atraumatic and normocephalic. CHEST: Clear to auscultation. HEART: S1 and S2. Regular rate and rhythm. ABDOMEN: Soft. No organomegaly. MUSCULOSKELETAL: No gross focal motor deficit. NEUROLOGIC: Awake, alert, and oriented x3. LABORATORY AND DIAGNOSTIC DATA: Chest x-ray and lower extremity duplex dated September 18 reviewed. Labs dated September 18, WBC 22, hemoglobin 17.1, and platelet count 219,000. Sodium 137 and potassium 4.4. LDL 171. TSH 0.3. Lactic acid 2.1. BNP 7200. ASSESSMENT: 1. Sepsis secondary to lower extremity cellulitis 2. Diabetes type 2 with A1c of 9.3, uncontrolled. 3. Acute on chronic renal failure. 4. Malnourishment. 5. Hypertension. 6. GI and DVT prophylaxis. PLAN OF CARE: Already started the patient on Lovenox therapeutic dose. Continue with the current IV antibiotic. Continue with the optimization of the medications. Continue with the IV antibiotic empiric pending the cultures. Add a statin. Cardiology and Nephrology have been consulted and notified. Taye Gates M.D. DR: Michael JOB#: [id number] CC: LAVERN
[2019-09-20 04:00] VITALS: BP 121/66
[2019-09-20] MEDS: Morphine Sulfate 4mg/ml Inj (IV USE ONLY) IVP PRN (04:48)
[2019-09-20] MEDS: Zosyn 3.375gm q8h **Extended infusion IVPB SCH ×2 (05:53)
[2019-09-20] MEDS: NovoLOG Insulin Flexpen SUBQ SCH (05:54)
--- NOTE | 2019-09-20 07:05 | NUR ---
NURSE NOTES: I received the patient resting in bed. Patient's HR within normal range this morning. Patient does not display any signs of distress or SOB. Bed in the lowest position and call light within reach. I will continue to monitor the patient and implement care.
--- NOTE | 2019-09-20 07:10 | NUR ---
NURSE NOTES: I received the patient resting comfortably resting in bed. Patient does not display any signs of distress or SOB. Bed in the lowest position and call light within reach. I will continue to monitor the patient and implement care.
--- NOTE | 2019-09-20 07:18 | NUR ---
HAND-OFF: Report given to Suzanna NOGUERA. Pt remains stable.
[2019-09-20 08:00] VITALS: BP 139/83
[2019-09-20] MEDS: Aspirin EC 81mg tab ORAL SCH (08:58)
[2019-09-20] MEDS: Carvedilol 12.5mg tab ORAL SCH (08:58)
[2019-09-20 08:59] VITALS: BP 139/83
[2019-09-20] MEDS: Docusate 100mg cap ORAL SCH ×2 (08:59→09:00)
[2019-09-20] MEDS ORDERED: Lisinopril 10mg tab ORAL SCH (09:00)
[2019-09-20] MEDS ORDERED: metOLazone 2.5 MG TAB ORAL SCH (09:00)
[2019-09-20] MEDS ORDERED: Imdur 30mg tab ORAL SCH (09:00)
[2019-09-20] MEDS: Enoxaparin 40mg Inj SUBQ SCH (09:00)
--- NOTE | 2019-09-20 10:00 | NUR ---
NURSE NOTES: Patient became very upset because she said the doctor told her he was going to discharge her today. Patient removed her IV and telemetry box. Patient was yelling profanity at the staff and upset. Patient signed the AMA form and was escorted to the lobby.
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
--- NOTE | 2019-09-21 12:21 | Cardiology Report ---
APPROVED REPORT EXAM: Two-dimensional and M-mode echocardiogram with Doppler and color Doppler. INDICATION Congestive Heart Failure M-Mode DIMENSIONS IVSd1.5 (0.7-1.1cm)Left Atrium (MM)3.7 (1.6-4.0cm) LVDd5.6 (3.5-5.6cm)Aortic Root3.1 (2.0-3.7cm) PWd0.8 (0.7-1.1cm)Aortic Cusp Exc.1.5 (1.5-2.0cm) IVSs1.1 cm LVDs4.9 (2.5-4.0cm) PWs1.1 cm Mild left ventricular enlargement . Mid to apical inferolateral wall, mid to apical inferoseptal wall and basal to mid septal wall hypokinesia, ischemic cardiomyopathy cannot be excluded. Left ventricular ejection fraction estimated to be 40%. Mild left ventricular hypertrophy. All other cardiac chamber sizes are within normal limits. Focal aortic valve sclerosis with adequate cusp excursion. Thickened mitral valve leaflets with normal excursion. Mitral annulus and aortic root calcification. Normal pulmonic valve structure. Normal tricuspid valve structure. IVC at normal size with physiologic collapse. A color flow and spectral Doppler study was performed and revealed: Mild to moderate mitral regurgitation. Mitral diastolic velocities suggest reduced left ventricular relaxation c/w mild LV diastolic dysfunction (Grade I ) Mild tricuspid regurgitation. Tricuspid systolic velocities suggests peak right ventricular systolic pressure of 31 mmHg.
--- NOTE | 2019-09-23 15:09 | NUR ---
*-* INSURANCE *-* ALL CLINICALS HAVE BEEN FAXED TO: [employer] F: [phone] REF# [id number]
== END 2019-09-20 10:27 | disposition left against medical advice (07) | DRG 871 ==
LOC: EDBD 13:29 → EMR 13:50 → EDBEDREQ 14:07 → 2E 15:34 → EDBEDREQ 15:40
DX: A40.9 Streptococcal sepsis, unspecified (principal); I50.23 Acute on chronic systolic (congestive) heart failure; N17.9 Acute kidney failure, unspecified; I13.2 Hypertensive heart and chronic kidney disease with heart failure and with stage 5 chronic kidney disease, or end stage renal disease; N18.5 Chronic kidney disease, stage 5; L03.116 Cellulitis of left lower limb; I25.10 Atherosclerotic heart disease of native coronary artery without angina pectoris; Z95.1 Presence of aortocoronary bypass graft; F17.200 Nicotine dependence, unspecified, uncomplicated; Z88.6 Allergy status to analgesic agent; I25.2 Old myocardial infarction; E11.22 Type 2 diabetes mellitus with diabetic chronic kidney disease; E11.65 Type 2 diabetes mellitus with hyperglycemia; F14.11 Cocaine abuse, in remission; Z59.0 Homelessness
CPT/HCPCS: 36415; 71045; 80053; 80061; 81003; 81025; 82962; 83036; 83605; 83690; 83880; 84443; 84484; 85007; 85025; 85610; 85730; 87040; 87181; 93005; 93306; 93971; 96361; 96365; 96375; 99285; J1815; J2405; J7030

== ENCOUNTER 2019-12-15 08:44 | Emergency (ER) | payer MEDICARE, OTHER ==
[~2019-12-15] VITALS: Ht 160 cm; Wt 99.8 kg
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
--- NOTE | 2019-12-15 08:56 | NUR ---
engineering design supervisor was called for sitter
[2019-12-15] MEDS ORDERED: Bacitracin Oint UD TOPIC ONE (09:00)
[2019-12-15] MEDS ORDERED: Tetanus/Diptheria/Pertussis IM ONE (09:00)
--- NOTE | 2019-12-15 09:07 | NUR ---
Pt belongings has been placed in locker #3
[2019-12-15 09:17] LABS: BASOPHILS % (AUTO) 1.4 % (0.0-2.0); EOSINOPHILS % (AUTO) 2.5 % (0.0-3.0); HEMATOCRIT 39.4 % (37.0-47.0); HEMOGLOBIN 13.4 G/DL (12.0-16.0); LYMPHOCYTES % (AUTO) 12.6 % (20.0-45.0); MEAN CORPUSCULAR VOLUME 86 FL (80-99); MONOCYTES % (AUTO) 6.2 % (1.0-10.0); NEUTROPHILS % (AUTO) 77.3 % (45.0-75.0); PLATELET COUNT 260 K/UL (150-450); RED BLOOD COUNT 4.58 M/UL (4.20-5.40); RED CELL DISTRIBUTION WIDTH 12.3 % (11.6-14.8)
[2019-12-15 09:37] LABS: ANION GAP 14 mmol/L (5-15); BLOOD UREA NITROGEN 39 mg/dL (7-18); CALCIUM 8.9 MG/DL (8.5-10.1); CARBON DIOXIDE 20 MMOL/L (21-32); CHLORIDE 106 MMOL/L (98-107); CREATININE 3.2 MG/DL (0.55-1.30); POTASSIUM 4.4 MMOL/L (3.5-5.1); SODIUM 139 MMOL/L (136-145)
[2019-12-15 09:41] LABS: ALANINE AMINOTRANSFERASE 27 U/L (12-78); ALBUMIN 3.2 G/DL (3.4-5.0); ALBUMIN/GLOBULIN RATIO 0.6 (1.0-2.7); ALKALINE PHOSPHATASE 122 U/L (46-116); ASPARTATE AMINO TRANSFERASE 21 U/L (15-37); BILIRUBIN,TOTAL 0.5 MG/DL (0.2-1.0)
--- NOTE | 2019-12-15 10:06 | NUR ---
ED Nurse Note: SANDWICH AND JUICE PROVIDED PER PT.'S REQUEST. PT IS ABLE TO FINISH THE FOOD PROVIDED
[2019-12-15 11:35] LABS: APPEARANCE,URINE CLEAR; BILIRUBIN, URINE NEGATIVE (NEGATIVE); COLOR,URINE PALE YELLOW; GLUCOSE, URINE (UA) 2+ (NEGATIVE); KETONES,URINE NEGATIVE (NEGATIVE); LEUKOCYTE ESTERASE ,URINE NEGATIVE (NEGATIVE); NITRITE,URINE NEGATIVE (NEGATIVE); PH,URINE 6 (4.5-8.0); PROTEIN,URINE 4+ (NEGATIVE); UROBILINOGEN,URINE NORMAL MG/DL (0.0-1.0)
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
[2019-12-15 15:08] VITALS: BP 168/98
[2019-12-15 19:00] VITALS: BP 164/97
--- NOTE | 2019-12-15 19:19 | NUR ---
HAND-OFF: Report given to LEODAN NOGUERA.
--- NOTE | 2019-12-15 19:45 | NUR ---
ED Nurse Note: pt care endorsed by CHUCKIE Li. pt is in bed and appears to be sleeping, no acute distress is noted at this time. breathing is even and non-labored, safety precautions are in place, sitter is at bedside.
--- NOTE | 2019-12-15 21:45 | NUR ---
ED Nurse Note: pt requesting food, provided with a sandwich and juices. safety precautions are in place, sitter at bedside
[2019-12-15 23:17] VITALS: BP 124/77
--- NOTE | 2019-12-15 23:18 | NUR ---
ED Nurse Note: pt asking for additional juice. provided with cranberry juice
--- NOTE | 2019-12-16 02:32 | NUR ---
ED Nurse Note: pt is in bed and appears to be sleeping, no acute distress is noted at this time. breathing is even and non-labored, safety precautions are in place, sitter is at bedside.
[2019-12-16 02:33] VITALS: BP 123/76
--- NOTE | 2019-12-16 04:59 | NUR ---
ED Nurse Note: breakfast tray has been ordered for pt. pt is in bed and appears to be sleeping, no acute distress is noted at this time. breathing is even and non-labored, VSS, safety precautions are in place, sitter is at bedside.
[2019-12-16 06:06] VITALS: BP 122/77
--- NOTE | 2019-12-16 06:30 | NUR ---
ED Nurse Note: pt is tearful in bed, when asked if she is okay, pt states that "i just hate myself." reassurance was offered, active listening and talk therapy were provided for pt. she remains calm in bed with safety measures in place and sitter at bedside.
--- NOTE | 2019-12-16 06:36 | NUR ---
ED Nurse Note: pt began menstrating, CN approved to provide pt with disposable underwear and pad for comfort, bed sheets changed as well
--- NOTE | 2019-12-16 06:46 | NUR ---
ED Nurse Note: pt is in bed eating breakfast
--- NOTE | 2019-12-16 07:09 | NUR ---
HAND-OFF: Report given to CHUCKIE Gallardo.
--- NOTE | 2019-12-16 07:15 | NUR ---
ED Nurse Note: Pt lying comfortably in bed with no signs of distress. Pt denies suicidal ideation at this time. Room is safe. Respirations even and unlabored on room air. Vitals stable as documented.
--- NOTE | 2019-12-16 07:40 | NUR ---
ED Nurse Note: Sumit Roy @ bedside
[2019-12-16 07:53] VITALS: BP 123/79
--- NOTE | 2019-12-16 14:00 | NUR ---
ER DISCHARGE NOTE: Patient is cleared to be discharged per ERMD, pt is aox4, on room air, with stable vital signs as documented. pt was given dc and prescription instructions, pt was able to verbalize understanding, pt id band removed. IV removed. pt is able to ambulate with steady gait. pt took all belongings. Pt refusing to take prescriptions and instructions because she said "it's a waste." ED MD aware.
--- NOTE | 2019-12-16 15:10 | NUR ---
ED Nurse Note: DR. FARRAR AT THE BEDSIDE
--- NOTE | 2019-12-16 15:20 | NUR ---
ED Nurse Note: Pt assessed by Dr. Taylor and miriam to discharge. Pt denies suicidal ideation.
[2019-12-16] MEDS ORDERED: LEXAPRO10 MG ORAL (15:25)
[2019-12-16] MEDS ORDERED: SEROQUEL50 MG ORAL (15:25)
--- NOTE | 2019-12-16 15:40 | NUR ---
ED Nurse Note: Dr. Taylor assessed and cleared patient for discharge. Pt denies suicidal ideation.
[2019-12-16 16:00] VITALS: BP 125/85
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
== END 2019-12-16 16:00 | disposition home or self-care (01) ==
LOC: EDBD 08:44 → EMR 09:55
DX: R45.851 Suicidal ideations (principal); F14.10 Cocaine abuse, uncomplicated; I25.2 Old myocardial infarction; E78.00 Pure hypercholesterolemia, unspecified; Z95.1 Presence of aortocoronary bypass graft; I10 Essential (primary) hypertension; E11.9 Type 2 diabetes mellitus without complications; Z88.6 Allergy status to analgesic agent; Z23 Encounter for immunization
CPT/HCPCS: 36415; 80053; 80307; 81001; 81025; 85025; 90471; 90715; 96360; 99285; G0480; J7030